=== PATIENT | female | born 1955 | race Caucasian/White ===

== ENCOUNTER → 2016-11-07 | Outpatient (CLI) | payer OTHER ==
[~2016-11-07] MED LIST: ALBUAER19 INH; AMIT100T2 PO; CHOL100027 PO; CLON2TAB3 PO; TRAZ300T PO
--- NOTE | 2016-11-07 13:48 | DIAGNOSTIC IMAGING REPORT ---
LEFT LOWER EXTREMITY VENOUS DOPPLER HISTORY: M79.89 Left leg swelling COMPARISON STUDY: None. FINDINGS: There is normal compressibility, flow, and augmentation within the left lower extremity deep venous system. Within the proximal pretibial soft tissues there is a slightly complex 4.5 x 3.1 x 1.5 cm fluid collection. This contains a thick wall and a few septations. This is located within the subcutaneous fat and favors a hematoma. IMPRESSION: No DVT within the left lower extremity. A 4.5 x 3.1 x 1.5 cm slightly complex fluid collection within the proximal pretibial soft tissues. This favors a hematoma. Electronically signed by: Tod Solis M.D. 11/07/2016 1:45 PM Dictated Date/Time: 11/07/2016 1:44 PM
--- NOTE | 2016-11-07 15:37 | DIAGNOSTIC IMAGING REPORT ---
CT LUNG SCREENING, LOW DOSE WITH COMPUTER-AIDED DETECTION (CAD) CLINICAL HISTORY: SCREENING/SMOKER, LT LEG PAIN, SWELLING COMPARISON STUDY: Chest x-ray 05/18/2012. CT DOSE: 87.60 mGy.cm TECHNIQUE: Low-dose helical CT was acquired without intravenous contrast from lung apices to bases and reconstructed at 2.5 mm every 2 mm. CAD was utilized for this study. FINDINGS: The central airways are patent. Severe emphysema. Punctate calcified granuloma within the left lung apex. There are 2 adjacent nodules within the right lower lobe as described below. No mediastinal or hilar lymphadenopathy. No significant calcified plaque within the coronary arteries. The ascending thoracic aorta measures up to 4 cm in diameter. The heart is normal in size. No pleural or pericardial effusions. Visualized unenhanced liver, spleen, and adrenal glands are unremarkable. Old, healed left posterior rib fracture. Nodule 1 Category: 3 Nodule 1 Status: Baseline Nodule 1 Description: Solid Nodule 1 Lesion ID: 1 Nodule 1 Slice Number: 67 Nodule 1 Volume (mm3): 226 Nodule 1 Major Whitney mm: 9.4 Nodule 1 Minor Whitney mm: 7.6 Nodule 2 Category: 2 Nodule 2 Status: Baseline Nodule 2 Description: Solid Nodule 2 Lesion ID: 2 Nodule 2 Slice Number: 69 Nodule 2 Volume (mm3): 14 Nodule 2 Major Whitney mm: 2.8 Nodule 2 Minor Whitney mm: 2.8 IMPRESSION: There are 2 adjacent subcentimeter nodules within the right lower lobe with recommendations listed below. Severe emphysema. The ascending thoracic aorta measures up to 4 cm in diameter. CAD FINDINGS: Overall Lung RADS Category: 3 Lung RADS Management Recommendation: Continue screening in 6 months. Lung RADS Follow Up Date: 2017-05-09 Lung RADS Nodule ID: 1 Electronically signed by: Tod Solis M.D. 11/07/2016 3:35 PM Dictated Date/Time: 11/07/2016 2:21 PM
== END | disposition home or self-care (01) ==
LOC: C.CTS 12:36
PROVIDERS: ATTEND Physician Assistant Medical
DX: M79.89 Other specified soft tissue disorders (principal); J44.9 Chronic obstructive pulmonary disease, unspecified; Z87.891 Personal history of nicotine dependence

== ENCOUNTER → 2017-07-02 | Outpatient (CLI) | payer OTHER ==
--- NOTE | 2017-07-02 11:12 | DIAGNOSTIC IMAGING REPORT ---
PET/CT SKULL-THIGH CLINICAL HISTORY: 61 years-old Female presenting with SINGLE PULMONARY NODULE, two right lower lung nodules one in the right lower lung increased in size from prior exam. TECHNIQUE: PET/CT was performed from the base of the skull through the proximal thighs following the intravenous administration of 14.575 mCi of F18-FDG. Blood glucose level 102 mg/dL. The injection was performed at 8:53 AM and imaging began at 9:[address] was performed for attenuation correction purposes and anatomic localization. COMPARISON: Chest CT from 06/10/2017. CT DOSE (mGy.cm): The estimated cumulative dose is 1156.30. FINDINGS: Head and neck: No FDG-avid disease or significant lymphadenopathy in the imaged portions of the head and the neck. Chest: No FDG-avid disease in the chest. Normal thyroid and thoracic inlet. No axillary, supraclavicular, hilar, or mediastinal lymphadenopathy. Atherosclerosis of the aorta. Normal heart size. No pericardial or pleural effusion. Severe emphysema. Redemonstration of 2 adjacent solid pulmonary nodules in the periphery of the right lower lobe. The larger nodule is at the lower limit of PET resolution. Allowing for this, the nodule has a max SUV of 0.86 in comparison to surrounding lung parenchyma with a max SUV of 0.50. This is not significantly FDG avid. The second smaller nodule is below the level of PET resolution. Dependent groundglass opacity most prominently in the left lower lobe with mild FDG avidity (max SUV 2.42). Mild bronchial wall thickening. Airways otherwise patent. Abdomen and pelvis: Below the diaphragm, tracer is distributed physiologically in the gastrointestinal and genitourinary tracts. There is no significant lymphadenopathy and no FDG-avid disease. Atherosclerosis of the normal caliber abdominal aorta. Postsurgical changes of the midline abdominal wall likely with mesh repair of a ventral incisional hernia. Musculoskeletal: Orthopedic hardware noted in the left humerus. Bilateral mild FDG avidity over the greater trochanters of the femurs suggest trochanteric bursitis. No FDG avid or destructive osseous lesion. Degenerative changes of the spine. Evidence of old left rib fractures. IMPRESSION: 1. No significant FDG avidity of the larger right lower lobe nodule. The smaller right lower lobe nodules below the level of PET resolution. Follow-up of these nodules by chest CT recommended per [employer] Society 2017 recommendations below. The lack of FDG avidity favors a benign etiology. 2. Severe emphysema. 3. Dependent mildly FDG avid groundglass opacity in the left lower lobe. This may represent atelectasis versus aspiration/aspiration pneumonitis. 4. Bilateral trochanteric bursitis. Please refer to below summary of Fleischner Society 2017 recommendations for follow-up of incidental CT nodules (Dolly Galindo et al. Guidelines for management of incidental pulmonary nodules detected on CT images: From the Fleischner Society 2017. Radiology 2017; 284: 228-243.) SOLID NODULES Single nodule; size < 6 mm * Low risk patients: No routine follow-up * High risk patients: Optional CT at 12 months Single nodule; size 6-8 mm * Low risk patients: CT at 6-12 months, then consider CT at 18-24 months * High risk patients: CT at 6-12 months, then at 18-24 months Single nodule; size > 8 mm * Either low or high risk patients: Considered CT at 3 months, PET/CT, or tissue sampling Multiple nodules; size < 6 mm * Low risk patients: No routine follow up * High risk patients: Optional CT at 12 months Multiple nodules; size 6-8 mm * Low risk patients: CT at 3-6 months, then consider CT at 18-24 months * High risk patients: CT at 3-6 months, then at 18-24 months Multiple nodules; size > 8 mm * Low risk patients: CT at 3-6 months, then consider at 18-24 months * High risk patients: CT at 3-6 months, then at 18-24 months Note: These guidelines apply to incidental nodules. These guidelines do not apply to patients younger than 35 years, immunocompromised patients, or patients with cancer. * Low risk patients: Minimal or absent history of smoking and/or other known risk factors * High risk patients: History of smoking, exposure to other carcinogens, emphysema, fibrosis, upper lobe location, family history of lung cancer, etc. * If a nodule up to 8 mm is partly solid or is ground glass, further follow-up is required after 24 months to exclude possible slow growing adenocarcinoma. SUBSOLID NODULES Single ground-glass nodule * Nodule size < 6 mm: No routine follow-up * Nodule size > or = 6 mm: CT at 6-12 months to confirm persistence, then CT every 2 years until 5 years Single part-solid nodule * Nodule size < 6 mm: No routine follow-up * Nodules size > or = 6 mm: CT at 3-6 months to confirm persistence. If unchanged and solid component remains < 6 mm, annual CT should be performed for 5 years Multiple nodules * Nodule size < 6 mm: CT at 3-6 months. If stable, consider CT at 2 and 4 years. * Nodules size > or = 6 mm: CT at 3-6 months. Subsequent management based on the most suspicious nodule(s) Electronically signed by: Cosmo Noble M.D. 07/02/2017 11:10 AM Dictated Date/Time: 07/02/2017 10:57 AM
== END | disposition home or self-care (01) ==
LOC: C.PET 08:34
PROVIDERS: ATTEND Internal Medicine
DX: R91.1 Solitary pulmonary nodule (principal); J43.9 Emphysema, unspecified; M70.61 Trochanteric bursitis, right hip; M70.62 Trochanteric bursitis, left hip

== ENCOUNTER → 2017-12-09 | Outpatient (CLI) | payer OTHER ==
--- NOTE | 2017-12-09 15:14 | DIAGNOSTIC IMAGING REPORT ---
(CHEST) THORAX WITHOUT CT DOSE: 166.52 mGycm CLINICAL HISTORY: 62 years-old Female with R91.8 Pulmonary nodules. Follow-up study in a patient with pulmonary nodules TECHNIQUE: Multiaxial CT images of the chest were performed without contrast. A dose lowering technique was utilized adhering to the principles of ALARA. COMPARISON: PET CT 06/22/2017, chest CT 06/10/2017 FINDINGS: No dominant thyroid nodule or pathologic adenopathy identified. The heart is normal in size without pericardial effusion. Atherosclerosis of the thoracic aorta. There is mild fusiform dilation of the ascending thoracic aorta, 4.0 x 3.9 cm in AP and transverse dimension. The imaged main pulmonary artery is unremarkable. Advanced emphysema without pneumothorax or pleural effusion. There are mild dependent groundglass subsegmental opacities suggesting atelectasis. 8 mm solid nodule of the right lower lobe on image 167 series 4 appears unchanged from comparison and demonstrates circumscribed margins. Air is noted adjacent 4 mm nodule on image 163 series 4 which also appears unchanged. No new or enlarging pulmonary nodules identified. There is mild bilateral bronchial wall thickening suggesting chronic bronchitis. No acute process of the imaged upper abdomen. Soft tissues are within normal limits. Bones appear mildly demineralized and intact. Postoperative changes about the left humeral head, partially imaged. IMPRESSION: 1. Unchanged size and appearance of the two solid pulmonary nodules of the right lower lobe measuring up to 8 mm . No new or enlarging pulmonary nodules are identified. 2. Severe emphysema with suggested bronchitis. 3. Mild fusiform dilation of the ascending thoracic aorta, 4.0 x 3.9 cm. Please refer to below summary of Fleischner criteria recommendations for follow-up of incidental CT nodules (Dolly Galindo, Guidelines for management of small pulmonary nodules detected on CT scans: A statement from the Fleischner Society, Radiology 237: [phone].) SOLID NODULES Multiple nodules size: 6-8 mm * Low risk patients: follow-up at 3-6 months, then consider further follow-up at 18-24 months * high risk patients: follow-up at 3-6 months, then at 18-24 months if no change Multiple nodules size: >8 mm * Low risk patients: follow-up at 3-6 months, then consider further follow-up at 18-24 months * high risk patients: follow-up at 3-6 months, then at 18-24 months if no change Note: newly detected indeterminate nodule in persons 35 years of age or older. * Low risk patients: minimal or absent history of smoking and/or other known risk factors * high risk patients: history of smoking or of other known risk factors (e.g. first degree relative with lung cancer, or exposure to asbestos, radon, uranium) * if a nodule up to 8 mm is partly solid or is ground glass further follow-up is required after 24 months to exclude possible slow growing adenocarcinoma (MARA) The above report was generated using voice recognition software. It may contain grammatical, syntax or spelling errors. Electronically signed by: Attila Limon M.D. 12/09/2017 3:13 PM Dictated Date/Time: 12/09/2017 3:05 PM
== END | disposition home or self-care (01) ==
LOC: C.CTS 14:11
PROVIDERS: ATTEND Internal Medicine
DX: R91.8 Other nonspecific abnormal finding of lung field (principal)

== ENCOUNTER 2024-02-06 16:15 | Inpatient (IN) ==
[2024-02-06 18:29] LABS: Basophils # (auto) 0.03 K/uL (0.00-0.20); Basophils % (auto) 0.6 %; Eosinophils # (auto) 0.04 K/uL (0.00-0.50); Eosinophils % (auto) 0.8 %; Hemoglobin 14.7 g/dl (12.0-16.0); Immature Granulocytes # (auto) 0.01 K/uL (0.01-0.20); Immature Granulocytes % (auto) 0.2 %; Lymphocytes # (auto) 1.05 K/uL (1.20-3.40); Mean Corpuscular Hemoglobin 30.8 pg (25.0-34.0); Mean Corpuscular Hgb Conc 32.7 g/dL (32.0-36.0); Mean Corpuscular Volume 94.3 fL (80.0-100.0); Mean Platelet Volume 10.3 fL (9.4-12.4); Monocytes # (auto) 0.45 K/uL (0.11-0.59); Monocytes % (auto) 8.6 %; Neutrophils # (auto) 3.66 K/uL (1.40-6.50); Neutrophils % (auto) 69.8 %; Platelet Count 255 K/uL (130-400); RDW Coefficient of Variation 12.3 % (11.5-14.5); RDW Standard Deviation 42.6 fL (36.4-46.3); Red Blood Count 4.77 M/uL (4.20-5.40); White Blood Count 5.24 K/ul (4.8-10.8)
[2024-02-06] MEDS: SODIUM CHLORIDE 0.9% 1,000 ML IV STA (18:30)
[2024-02-06] MEDS: ACETAMINOPHEN 1,000 MG/100 ML VIAL IV STA (18:30)
[2024-02-06] MEDS: fentaNYL citrate PF 100 MCG/2 ML VIAL IV ONE (18:30)
[2024-02-06 18:36] LABS: Albumin Globulin Ratio 1.2 (0.9-2); BUN Creatinine Ratio 19.1 (10-20); Bilirubin,Total 0.6 mg/dl (0.2-1.0); Calcium 9.5 mg/dl (8.6-10.3); Creatinine Clr Calc Pharmacy 65.6 ml/min; Est GFR (African American) 102.7 ml/min; Est GFR (Non-African American) 88.6 ml/min; Globulin 3.3 gm/dl (2.5-4.0); Potassium 3.9 mmol/L (3.5-5.1); Total Protein 7.3 gm/dl (6.0-8.3)
[2024-02-06] MEDS: fentaNYL citrate PF 100 MCG/2 ML VIAL IV STA (20:23)
--- NOTE | 2024-02-06 21:52 | Magnetic Resonance Report ---
Exam(s): MRI L SPINE Without Contrast EXAM: MR Lumbar Spine Without Intravenous Contrast CLINICAL HISTORY: Reason for exam: lumbar compression fx, L leg weakness. TECHNIQUE: Magnetic resonance images of the lumbar spine without intravenous contrast in multiple planes. COMPARISON: None. FINDINGS: Vertebrae: Severe biconcave T12 compression deformity with retropulsion. Mild underlying edema is nonspecific, could reflect subacute fracture with ongoing healing. Avascular necrosis is also a consideration. No other compression deformity or marrow edema. No discitis or osteomyelitis. Conus: Terminates normally, no abnormal signal. Normal rootlets of the cauda equina, with possible mild, chronic arachnoiditis of the distal thecal sac. Soft tissues: No epidural hematoma or paraspinous mass. DISCS/SPINAL CANAL/NEURAL FORAMINA: T12-L1: T12 retropulsion with narrowing of the spinal canal, though CSF persists dorsal to the conus and there is no spinal stenosis. L1-L2: Unremarkable for age. L2-L3: Moderate degenerative disc disease. L3-L4: Moderate degenerative disc disease. L4-L5: Moderate degenerative disc disease. L5-S1: Unremarkable for age. OTHER: No isolated disc herniation. Moderate to severe facet hypertrophy. No significant central spinal stenosis. IMPRESSION: 1. Severe T12 compression deformity with mild edema, possible subacute fracture with ongoing healing. Avascular necrosis felt less likely, not excluded. 2. Possible, mild chronic arachnoiditis of the distal thecal sac. 3. Moderate degenerative disc disease, without disc herniation or central spinal stenosis. 4. No disc herniation, central spinal stenosis, marrow edema, acute fracture, discitis/osteomyelitis or abnormal signal in the conus. Electronically signed by: Alfreda Oh M.D. 02/06/24 21:51 PM
[2024-02-06] MEDS: MoRPHine SULFATE 2 MG/ML CARP IV PRN (23:10)
--- NOTE | 2024-02-07 01:04 | Emergency Department Note ---
Impression & Plan Closed T12 fracture, Intractable pain, Unable to care for self ED Provider Note CHIEF COMPLAINT: Low back pain, left leg weakness HISTORY OF PRESENT ILLNESS: This 68-year-old female patient with past medical history of COPD, anxiety/depression, GERD, polyneuropathy, pulmonary nodules and osteoporosis presents to the emergency department with complaints of low back pain. Patient states she fell getting out of bed in mid January after her leg got caught on her bedspread. Patient states she fell with her hip into her radiator. She has a known T12 compression fracture that was diagnosed at an outside hospital while on vacation several weeks ago. She has been taking gabapentin and oxy without significant relief of her discomfort. Patient states she has been living on her couch and attempting to use a bucket next to the couch as a toilet. She has limited assistance at home, but has been asking friends and family to come in to help her. Patient was referred into the emergency department by her PCPs office for further evaluation and management. Patient denies any recent falls since the initial fall several weeks ago. REVIEW OF SYSTEMS: A review of systems was performed with positives and pertinent negatives listed in the history of present illness. 10 systems were reviewed and are otherwise negative. ALLERGIES: see below MEDICATIONS: see below PMH: see below SOCIAL HISTORY: see below DDx: Lumbar disc herniation, muscular strain, cauda equina, UTI, kidney stone among others. PHYSICAL EXAM: Vital signs reviewed. General: Chronically ill-appearing 68-year-old female, thin and frail. HEENT: No scleral icterus, PERRLA, neck supple. Moist mucous membranes Cardiovascular: Regular rate and rhythm, no extra sounds. Pulmonary: Clear to auscultation bilaterally, normal work of breathing. Abdomen: Soft, nontender, nondistended, positive bowel sounds. Musculoskeletal: Nontender to palpation of the cervical and thoracic spine, the proximal lumbar spine is uncomfortable to palpation, unable to raise the left leg, deep tendon reflex in the left knee is difficult to obtain as patient has had a knee replacement. She does have full dorsiflexion and plantarflexion of the left foot. Neurologic: Patient awake alert and oriented x 3, speech is clear Skin: Warm, dry, no rash EMERGENCY DEPARTMENT COURSE/MDM: Patient was evaluated and appeared to be some discomfort. IV access was obtained and laboratory work was drawn. Patient was placed on the sheet rock applier and noted to be in normal sinus rhythm. Given the patient's recent history and diagnosed T12 compression fracture and no access to her previous imaging, MRI of the lumbar spine was performed due to the weakness in the left leg. Patient was medicated with IV acetaminophen, IV fentanyl and hydrated with normal saline solution. Patient's laboratory work is reassuring. UA has been ordered but has not yet been collected. Patient did require several doses of IV analgesics due to her discomfort. Time she is not safe for discharge home she is not able to ambulate. Patient's case was discussed with the hospitalist service to evaluate the patient for admission and further management. Consult with Dr. Morton was attempted but unsuccessful, will defer to inpatient team. Patient is aware of the plan and agreed. MONITORING: An order for cardiac monitoring was placed and the patient is noted to be in a normal sinus rhythm at 63 beats per minute. RADIOLOGY: IMPRESSION: 1. Severe T12 compression deformity with mild edema, possible subacute fracture with ongoing healing. Avascular necrosis felt less likely, not excluded. 2. Possible, mild chronic arachnoiditis of the distal thecal sac. 3. Moderate degenerative disc disease, without disc herniation or central spinal stenosis. 4. No disc herniation, central spinal stenosis, marrow edema, acute fracture, discitis/osteomyelitis or abnormal signal in the conus. DISPOSITION: Admit Past Med/Surg History Problem List (Updated 02/08/24 @ 01:26 by Gina Martínez MD) Unable to care for self (Acute) Intractable pain (Acute) Closed T12 fracture (Acute) UTI (urinary tract infection) Fracture of femoral neck, left Compression fracture of body of thoracic vertebra (01/19/24) patient had a traumatic fall and sustained compression fractures in T12, L3 and L4-per the [facility] ED report dated 01/19/24 Vitamin B12 deficiency (Chronic) Osteoporosis (Chronic) alendronate started 01/2023 Idiopathic polyneuropathy (Chronic) Pulmonary nodules (Chronic) Insomnia (Chronic) Gastroesophageal reflux disease (Chronic) Depression with anxiety (Chronic) Chronic obstructive pulmonary disease (Chronic) Medical History History of renal artery stenosis s/p right renal artery bypass 1999 Surgical History History of umbilical hernia repair History of hemorrhoidectomy History of arthroscopy of right shoulder History of total knee arthroplasty Family History Mother Pulmonary embolism Father Intracranial hemorrhage Denies family history of Ovarian cancer Prostate cancer Myocardial infarction Breast cancer Colorectal cancer Social History Smoking Status: Current every day smoker Tobacco Type: Cigarettes Age Started Using Tobacco: 16; packs per day: 0.5; Cigarettes Per Day: 2; Second Hand Exposure: No; Do You Dip or Chew Tobacco: No; Hx Alcohol Use: No Hx Substance Use: No Preferred Language: Pashto Communication Ability: Effective Hearing Ability: Normal 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 Product Required: No Beliefs That Will Affect Care: None marital status: Current Living Situation: Alone current occupational status: employed current occupation: [employer] Other Information That Helps Us Care for You: No Feels Safe at Home: Yes Safety Concerns: Feels Safe At This Time Dental Care, Regularly: No Physical Activity Frequency: Does not Exercise Seatbelt Use: always Sunscreen Use: No Assistive Devices: Cane, Denture - Upper and Denture - Lower Allergies Allergies Allergy/AdvReac Type Severity Reaction Status Date / Time NSAIDS (Non-Steroidal Allergy Unknown NOT TO Verified 02/06/24 20:46 Anti-Inflamma TAKE PER MD DUE TO RENAL ARTERY BYPASS Home Meds Home Medications Medication Instructions Recorded Confirmed B6 1.7 mg-folic 400 mcg-B12 2.4 1 cap PO .FRSASU 08/20/22 02/06/24 yaz-vnzlzb-ufldndwhrnrb oral capsule (Neuriva Plus Brain Performance) biotin 10,000 mcg capsule 0 mcg PO DAILY 08/20/22 02/06/24 vit C 250 mg-vit E 90 mg-zinc 40 1 tab PO DAILY 08/20/22 02/06/24 mg-copper 1 nb-saqife-rulenl capsule (PreserVision AREDS-2) mecobalamin (vitamin B12) 1,000 1,000 mcg PO .FRSASU 01/12/23 02/06/24 mcg chewable tablet multivitamin 1 tab PO QAM 02/06/24 02/06/24 Previous Rx's Medication Instructions Recorded gabapentin 100 mg capsule 200 mg (2 x 100 mg) PO HS #180 caps 07/01/23 umeclidinium 62.5 mcg-vilanterol 1 inh inhalation Q24H #180 ea 07/07/23 25 mcg/actuation powdr for inhalation (Anoro Ellipta) clonazepam 1 mg tablet (Klonopin) 1 mg PO QID #120 tabs 10/28/23 alendronate 70 mg tablet 70 mg PO .COMPLEX #12 tabs 12/12/23 albuterol sulfate 90 mcg/actuation 2 puff inhalation Q4H PRN 12/24/23 aerosol inhaler (Ventolin HFA) shortness of breath or wheezing #18 grams efinaconazole 10 % topical 1 applic topical DAILY 48 weeks #4 12/24/23 solution with applicator mL mirtazapine 45 mg tablet 45 mg PO QPM #90 tabs 12/24/23 omeprazole 20 mg capsule,delayed 20 mg PO DAILY #90 caps 12/24/23 release trazodone 100 mg tablet 200 mg (2 x 100 mg) PO HS #180 tabs 12/24/23 triamcinolone acetonide 0.1 % 1 applic topical BID #30 grams 12/24/23 topical ointment calcitonin (salmon) 200 1 spray intranasal (ALT) DAILY 30 01/27/24 unit/actuation nasal spray days #3.7 mL oxycodone-acetaminophen 5 mg-325 1 tab PO Q6H PRN pain 7 days #28 02/04/24 mg tablet tabs Results & Data (ED) Vital Signs Vital Signs - 24 hr 02/06/24 16:16 02/06/24 16:16 02/06/24 16:59 Temperature 36.6 C Temperature Source Temporal Artery Scan Pulse Rate 79 67 Pulse Rate [Apical] Pulse Rhythm [Apical] Pulse Strength [Apical] Respiratory Rate 18 Respiratory Effort / Characteristics Respiratory Depth Respiratory Pattern Blood Pressure 136/82 Blood Pressure [Right Arm] Blood Pressure Mean 100 Blood Pressure Mean [Right Arm] Blood Pressure Position [Right Arm] Pulse Oximetry 93 93 Oxygen Delivery Method Sepsis Recent Fever Within 48 Hours No Sepsis New/Unexplained Change in Mental Status N/A Sepsis Action Taken by Nursing No Action Required 02/06/24 17:32 02/06/24 18:32 02/06/24 20:30 Temperature Temperature Source Pulse Rate Pulse Rate [Apical] 64 67 Pulse Rhythm [Apical] Regular Pulse Strength [Apical] Respiratory Rate 19 19 16 Respiratory Effort / Characteristics Non-Labored Spontaneous Non-Labored Spontaneous Respiratory Depth Normal Normal Respiratory Pattern Regular Blood Pressure Blood Pressure [Right Arm] 128/72 108/58 L 126/63 Blood Pressure Mean Blood Pressure Mean [Right Arm] 90 74 84 Blood Pressure Position [Right Arm] Pulse Oximetry 93 95 90 Oxygen Delivery Method Room Air Room Air Room Air Sepsis Recent Fever Within 48 Hours Sepsis New/Unexplained Change in Mental Status Sepsis Action Taken by Nursing 02/06/24 22:00 02/06/24 23:36 02/07/24 00:00 Temperature Temperature Source Pulse Rate 62 Pulse Rate [Apical] 71 63 Pulse Rhythm [Apical] Regular Pulse Strength [Apical] Normal Respiratory Rate 18 18 Respiratory Effort / Characteristics Non-Labored Spontaneous Respiratory Depth Normal Normal Respiratory Pattern Regular Blood Pressure Blood Pressure [Right Arm] 110/78 117/91 Blood Pressure Mean Blood Pressure Mean [Right Arm] 88 99 Blood Pressure Position [Right Arm] Lying Pulse Oximetry 94 93 Oxygen Delivery Method Room Air Room Air Sepsis Recent Fever Within 48 Hours Sepsis New/Unexplained Change in Mental Status Sepsis Action Taken by Half-Way Medications Current Medication List: was personally reviewed by me Laboratory Data Attestation: I reviewed the patient's lab results. 02/07/24 09:08 02/07/24 09:08 Lab Results 02/06/24 Range/Units 16:35 WBC 5.24 (4.8-10.8) K/ul RBC 4.77 (4.20-5.40) M/uL Hgb 14.7 (12.0-16.0) g/dl Hct 45.0 (37.0-47.0) % MCV 94.3 (80.0-100.0) fL MCH 30.8 (25.0-34.0) pg MCHC 32.7 (32.0-36.0) g/dL RDW Std Deviation 42.6 (36.4-46.3) fL RDW Coeff of Josie 12.3 (11.5-14.5) % Plt Count 255 (130-400) K/uL MPV 10.3 (9.4-12.4) fL Immature Gran % (Auto) 0.2 % Neut % (Auto) 69.8 % Lymph % (Auto) 20.0 % [place] % (Auto) 8.6 % Eos % (Auto) 0.8 % Baso % (Auto) 0.6 % Neut # (Auto) 3.66 (1.40-6.50) K/uL Lymph # (Auto) 1.05 L (1.20-3.40) K/uL [place] # (Auto) 0.45 (0.11-0.59) K/uL Eos # (Auto) 0.04 (0.00-0.50) K/uL Baso # (Auto) 0.03 (0.00-0.20) K/uL Immature Gran # (Auto) 0.01 (0.01-0.20) K/uL Sodium 135 L (136-145) mmol/L Potassium 3.9 (3.5-5.1) mmol/L Chloride 101 (98-107) mmol/L Carbon Dioxide 28 (21-32) mmol/L Anion Gap 6 (3-11) BUN 13 (6-23) mg/dl Creatinine 0.68 (0.6-1.2) mg/dl Est Cr Clr Drug Dosing 65.6 ml/min Est GFR ( Amer) 102.7 ml/min Est GFR (Non-Af Amer) 88.6 ml/min BUN/Creatinine Ratio 19.1 (10-20) Glucose 111 H (70-99(Fasting)) mg/dl Calcium 9.5 (8.6-10.3) mg/dl Total Bilirubin 0.6 (0.2-1.0) mg/dl AST 19 (13-39) U/L ALT 10 (7-52) U/L Alkaline Phosphatase 96 (34-104) U/L Total Protein 7.3 (6.0-8.3) gm/dl Albumin 4.0 (3.4-5.0) gm/dl Globulin 3.3 (2.5-4.0) gm/dl Albumin/Globulin Ratio 1.2 (0.9-2) Administered Medications Acetaminophen (Acetaminophen 500 Mg Tab) 1,000 mg PO Q8H PRN PRN Reason: Pain first line Stop: 03/08/24 04:15 Last Admin: 02/07/24 08:00 Dose: 1,000 mg Documented By: LMM Clonazepam (Clonazepam 1 Mg Tab) 1 mg PO QID ALFREDO Stop: 03/08/24 08:59 Last Admin: 02/07/24 21:14 Dose: 1 mg Documented By: Admin: 02/07/24 17:06 Dose: 1 mg Documented By: Admin: 02/07/24 13:14 Dose: 1 mg Documented By: Admin: 02/07/24 08:21 Dose: 1 mg Documented By: KYLIE Cyanocobalamin (Cyanocobalamin (B-12) 500 Mcg Tablet) 1,000 mcg PO SuFrSa@0900 ALFREDO Stop: 03/08/24 08:59 Last Admin: 02/07/24 08:22 Dose: 1,000 mcg Documented By: KYLIE Gabapentin (Gabapentin 100 Mg Cap) 200 mg PO HS ALFREDO Stop: 03/08/24 20:59 Last Admin: 02/07/24 21:14 Dose: 200 mg Documented By: MIRIAN Dexamethasone 4 mg/ Syringe 1 mls @ 1 mls/min IV Q8H ALFREDO Stop: 03/08/24 08:59 Last Admin: 02/08/24 01:03 Dose: 1 mls/min Documented By: Admin: 02/07/24 17:07 Dose: 1 mls/min Documented By: Admin: 02/07/24 09:06 Dose: 1 mls/min Documented By: KYLIE Ceftriaxone Sodium (Rocephin) 1,000 mg in 50 mls @ 100 mls/hr IV Q24H ALFREDO Stop: 02/12/24 18:59 Last Infusion: 02/07/24 21:20 Dose: Infused Documented By: Admin: 02/07/24 20:37 Dose: 100 mls/hr Documented By: MIRIAN Lidocaine (Lidocaine 5% 1 Patch) 1 patch TD QAM ALFREDO Stop: 03/08/24 18:59 Last Admin: 02/07/24 20:37 Dose: 1 patch Documented By: MIRIAN Mirtazapine (Mirtazapine Soltab 15 Mg) 45 mg PO QPM ALFREDO Stop: 03/08/24 20:59 Last Admin: 02/07/24 21:14 Dose: 45 mg Documented By: MIRIAN Miscellaneous (Efinaconazole 10% Soln: Order Awaiting Action) 1 each N/A QS ALFREDO Stop: 03/08/24 07:59 Last Admin: 02/08/24 01:05 Dose: Not Given Documented By: Admin: 02/07/24 15:02 Dose: Not Given Documented By: Admin: 02/07/24 08:02 Dose: Not Given Documented By: KYLIE Miscellaneous (Remove Lidoderm Patch) 1 each N/A DAILY@2100 [facility] Stop: 03/08/24 22:59 Last Admin: 02/08/24 01:05 Dose: 1 each Documented By: MIRIAN Morphine Sulfate (Morphine Sulfate 2 Mg/Ml Carp) 2 mg IV Q4H PRN PRN Reason: Pain 4-6 Stop: 02/21/24 02:22 Last Admin: 02/07/24 10:50 Dose: 2 mg Documented By: Admin: 02/07/24 06:11 Dose: 2 mg Documented By: MIRIAN Morphine Sulfate (Morphine Sulfate 4 Mg/Ml 1 Ml Carp\Vial) 4 mg IV Q4H PRN PRN Reason: Pain 7-10 Stop: 02/21/24 02:22 Last Admin: 02/08/24 01:03 Dose: 4 mg Documented By: Admin: 02/07/24 19:18 Dose: 4 mg Documented By: Admin: 02/07/24 13:35 Dose: 4 mg Documented By: Admin: 02/07/24 08:00 Dose: 4 mg Documented By: Admin: 02/07/24 02:31 Dose: 4 mg Documented By: MIRIAN Multivitamins (Multivitamin Tab) 1 tab PO [facility] Stop: 03/08/24 08:59 Last Admin: 02/07/24 08:22 Dose: 1 tab Documented By: KYLIE Pantoprazole Sodium (Pantoprazole 40 Mg Tab) 40 mg PO DAILY [facility] Stop: 03/08/24 08:59 Last Admin: 02/07/24 08:22 Dose: 40 mg Documented By: KYLIE Trazodone HCl (Trazodone Hcl 100 Mg Tab) 200 mg PO HS [facility] Stop: 03/08/24 20:59 Last Admin: 02/07/24 21:14 Dose: 200 mg Documented By: MIRIAN Triamcinolone Acetonide (Triamcinolone Acet 0.1% Oint 15 Gm Tube) 1 appln TOP BID [facility] Stop: 03/08/24 08:59 Last Admin: 02/07/24 21:21 Dose: Not Given Documented By: Admin: 02/07/24 08:21 Dose: 1 appln Documented By: KYLIE Umeclidinium/Vilanterol (Umeclidinium/Vilanterol 62.5/25mcg 7 Puffs/Inhaler) 1 puffs INH DAILY ALFREDO Stop: 03/08/24 08:59 Last Admin: 02/07/24 08:22 Dose: 1 puffs Documented By: LMDomenica Discontinued Medications Fentanyl Citrate (Fentanyl Citrate Pf 100 Mcg/2 Ml Vial) 25 mcg IV NOW ONE Stop: 02/06/24 18:18 Last Admin: 02/06/24 18:30 Dose: 25 mcg Documented By: FÁTIMA Fentanyl Citrate (Fentanyl Citrate Pf 100 Mcg/2 Ml Vial) 50 mcg IV NOW STA Stop: 02/06/24 20:20 Last Admin: 02/06/24 20:23 Dose: 50 mcg Documented By: MILAGROS Acetaminophen (Ofirmev) 1,000 mg in 100 mls @ 400 mls/hr IV NOW STA Stop: 02/06/24 18:31 Last Infusion: 02/06/24 19:52 Dose: Infused Documented By: Admin: 02/06/24 18:30 Dose: 400 mls/hr Documented By: FÁTIMA Sodium Chloride (Nss) 1,000 mls @ 100 mls/hr IV .Q10H STA Stop: 02/07/24 04:17 Last Infusion: 02/07/24 02:32 Dose: Infused Documented By: Admin: 02/06/24 18:30 Dose: 100 mls/hr Documented By: FÁTIMA Dexamethasone 6 mg/ Syringe 1.5 mls @ 1 mls/min IV ONE ONE Stop: 02/07/24 02:31 Last Admin: 02/07/24 02:35 Dose: 1 mls/min Documented By: MIRIAN Sodium Chloride (Nss) 500 mls @ 80 mls/hr IV .Q6H15M ALFREDO Stop: 02/07/24 08:59 Last Infusion: 02/07/24 09:12 Dose: Infused Documented By: Admin: 02/07/24 02:51 Dose: 80 mls/hr Documented By: MIRIAN Morphine Sulfate (Morphine Sulfate 2 Mg/Ml Carp) 2 mg IV Q2H PRN PRN Reason: Pain Stop: 02/20/24 23:02 Last Admin: 02/06/24 23:10 Dose: 2 mg Documented By: MILAGROS Morphine Sulfate (Morphine Sulfate 2 Mg/Ml Carp) 2 mg IV NOW STA Stop: 02/07/24 06:00 Last Admin: 02/07/24 06:15 Dose: Not Given Documented By: LBN Imaging Data Radiologist's Impression: Lumbar Spine MRI 02/06/24 18:17 Exam(s): MRI L SPINE Without Contrast EXAM: MR Lumbar Spine Without Intravenous Contrast CLINICAL HISTORY: Reason for exam: lumbar compression fx, L leg weakness. TECHNIQUE: Magnetic resonance images of the lumbar spine without intravenous contrast in multiple planes. COMPARISON: None. FINDINGS: Vertebrae: Severe biconcave T12 compression deformity with retropulsion. Mild underlying edema is nonspecific, could reflect subacute fracture with ongoing healing. Avascular necrosis is also a consideration. No other compression deformity or marrow edema. No discitis or osteomyelitis. Conus: Terminates normally, no abnormal signal. Normal rootlets of the cauda equina, with possible mild, chronic arachnoiditis of the distal thecal sac. Soft tissues: No epidural hematoma or paraspinous mass. DISCS/SPINAL CANAL/NEURAL FORAMINA: T12-L1: T12 retropulsion with narrowing of the spinal canal, though CSF persists dorsal to the conus and there is no spinal stenosis. L1-L2: Unremarkable for age. L2-L3: Moderate degenerative disc disease. L3-L4: Moderate degenerative disc disease. L4-L5: Moderate degenerative disc disease. L5-S1: Unremarkable for age. OTHER: No isolated disc herniation. Moderate to severe facet hypertrophy. No significant central spinal stenosis. IMPRESSION: 1. Severe T12 compression deformity with mild edema, possible subacute fracture with ongoing healing. Avascular necrosis felt less likely, not excluded. 2. Possible, mild chronic arachnoiditis of the distal thecal sac. 3. Moderate degenerative disc disease, without disc herniation or central spinal stenosis. 4. No disc herniation, central spinal stenosis, marrow edema, acute fracture, discitis/osteomyelitis or abnormal signal in the conus. Electronically signed by: Alfreda Oh M.D. 02/06/24 21:51 PM Discharge Plan Visit Data Chief Complaint: Back Injury/Pain Stated Complaint: FELL ON THE January,FRACTURED VERTABRA ED Provider: Gina Martínez Discharge Problem: Closed T12 fracture, Intractable pain, Unable to care for self Patient Disposition: Admitted As Inpatient Discharge Instructions Interventions: ED Discharge Assessment Last Done: 02/07/24 01:38 Discharge Problem: Closed T12 fracture Qualifiers: Encounter type: subsequent encounter Fracture morphology: unspecified fracture morphology Fracture healing: with routine healing Qualified Code(s): S22.089D - Unspecified fracture of T11-T12 vertebra, subsequent encounter for fracture with routine healing
--- NOTE | 2024-02-07 01:48 | History & Physical Report ---
Date of Service February 07, 2024 Assessment & Plan (1) Compression fracture of body of thoracic vertebra: Plan: - MRI of lumbar spine with Severe T12 compression deformity with mild edema, possible subacute fracture with ongoing healing. Avascular necrosis felt less likely, not excluded. Possible, mild chronic arachnoiditis of the distal thecal sac - strength in left LE - ortho/spine consulted; NPO pending eval - Will give 6mg Decadron and continue 4mg q8 hours - Pain regimen with Tylenol, Morphine 2mg q4h pain 4-6, 4mg pain 7-10 - Hold on PT/OT until evaluated by ortho/spine (2) Insomnia: Plan: - continue trazodone, mirtazapine (3) Gastroesophageal reflux disease: Plan: - continue pantoprazole (4) Depression with anxiety: Plan: - continue clonazepam (5) Chronic obstructive pulmonary disease: Plan: - continue home inhalers Plan Diet: NPO pending ortho/spine eval Code: Full VTE prophylaxis: SCD, defer pharmacologic pending ortho/spine eval History of Present Illness Primary Care Provider: Petrona Castañeda MD 68 year old female with a past medical history of anxiety, depression, COPD, tobacco use, osteoporosis presenting with increased back pain and left LE weakness. Had a fall on 01/17/24. Went to get out of bed and tripped over her comforter. Next day drove to [facility] with her family. Was having continued back pain and was seen in [facility] ED where she was diagnosed with a T12 compression fracture. Since then has had worsening low back pain and weakness in left leg. Denies bowel/bladder incontinence, saddle anesthesia. Lives alone in a 2 story building, bathroom in on the second floor. Daughter lives locally. Has been having trouble getting around the house/up the stairs. ED Course: MRI lumbar spine with Severe T12 compression deformity with mild edema, possible subacute fracture with ongoing healing. Avascular necrosis felt less likely, not excluded. Possible, mild chronic arachnoiditis of the distal thecal sac. Allergies Allergy/AdvReac Type Severity Reaction Status Date / Time NSAIDS (Non-Steroidal Allergy Unknown NOT TO Verified 02/06/24 20:46 Anti-Inflamma TAKE PER MD DUE TO RENAL ARTERY BYPASS Home Medications Medication Instructions Recorded Confirmed Type B6 1.7 mg-folic 400 mcg-B12 2.4 1 cap PO .[facility] 08/20/22 02/06/24 History cqj-fntzul-kwnsryohhnup oral capsule (Neuriva Plus Brain Performance) biotin 10,000 mcg capsule 0 mcg PO DAILY 08/20/22 02/06/24 History vit C 250 mg-vit E 90 mg-zinc 40 1 tab PO DAILY 08/20/22 02/06/24 History mg-copper 1 ip-kircgo-zvzxxe capsule (PreserVision AREDS-2) mecobalamin (vitamin B12) 1,000 1,000 mcg PO .[facility] 01/12/23 02/06/24 History mcg chewable tablet gabapentin 100 mg capsule 200 mg (2 x 100 mg) PO HS #180 caps 07/01/23 02/06/24 Rx umeclidinium 62.5 mcg-vilanterol 1 inh inhalation Q24H #180 ea 07/07/23 02/06/24 Rx 25 mcg/actuation powdr for inhalation (Anoro Ellipta) clonazepam 1 mg tablet (Klonopin) 1 mg PO QID #120 tabs 10/28/23 02/06/24 Rx alendronate 70 mg tablet 70 mg PO .COMPLEX #12 tabs 12/12/23 02/06/24 Rx albuterol sulfate 90 mcg/actuation 2 puff inhalation Q4H PRN 12/24/23 02/06/24 Rx aerosol inhaler (Ventolin HFA) shortness of breath or wheezing #18 grams efinaconazole 10 % topical 1 applic topical DAILY 48 weeks #4 12/24/23 02/06/24 Rx solution with applicator mL mirtazapine 45 mg tablet 45 mg PO QPM #90 tabs 12/24/23 02/06/24 Rx omeprazole 20 mg capsule,delayed 20 mg PO DAILY #90 caps 12/24/23 02/06/24 Rx release trazodone 100 mg tablet 200 mg (2 x 100 mg) PO HS #180 tabs 12/24/23 02/06/24 Rx triamcinolone acetonide 0.1 % 1 applic topical BID #30 grams 12/24/23 02/06/24 Rx topical ointment calcitonin (salmon) 200 1 spray intranasal (ALT) DAILY 30 01/27/24 02/06/24 Rx unit/actuation nasal spray days #3.7 mL oxycodone-acetaminophen 5 mg-325 1 tab PO Q6H PRN pain 7 days #28 02/04/24 02/06/24 Rx mg tablet tabs multivitamin 1 tab PO QAM 02/06/24 02/06/24 History Past Med/Surg History Problem List Compression fracture of body of thoracic vertebra (01/19/24) patient had a traumatic fall and sustained compression fractures in T12, L3 and L4-per the [facility] ED report dated 01/19/24 Vitamin B12 deficiency (Chronic) Osteoporosis (Chronic) alendronate started 01/2023 Idiopathic polyneuropathy (Chronic) Pulmonary nodules (Chronic) Insomnia (Chronic) Gastroesophageal reflux disease (Chronic) Depression with anxiety (Chronic) Chronic obstructive pulmonary disease (Chronic) Medical History History of renal artery stenosis s/p right renal artery bypass 2000 Surgical History History of umbilical hernia repair History of hemorrhoidectomy History of arthroscopy of right shoulder History of total knee arthroplasty Family History Mother Pulmonary embolism Father Intracranial hemorrhage Denies family history of Ovarian cancer Prostate cancer Myocardial infarction Breast cancer Colorectal cancer Social History Smoking Status: Current every day smoker Tobacco Type: Cigarettes Age Started Using Tobacco: 16; packs per day: 0.5; Cigarettes Per Day: 2; Second Hand Exposure: No; Do You Dip or Chew Tobacco: No; Hx Alcohol Use: No Hx Substance Use: No Preferred Language: Pashto Communication Ability: Effective Hearing Ability: Normal 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 Beliefs That Will Affect Care: None marital status: Current Living Situation: Alone current occupational status: employed current occupation: [employer] Other Information That Helps Us Care for You: No Feels Safe at Home: Yes Safety Concerns: Feels Safe At This Time Dental Care, Regularly: No Physical Activity Frequency: Does not Exercise Seatbelt Use: always Sunscreen Use: No Assistive Devices: Cane, Denture - Upper and Denture - Lower Review of Systems Review of Systems: As per above Physical Exam Physical Exam: Constitutional: well-appearing, no acute distress HEENT: NCAT, no conjunctival injection CV: regular rhythm, no murmur appreciated, extremities well-perfused, no LE edema Resp: CTABL, no wheezes/rales/rhonchi appreciated, no increased work of breathing GI: soft, nondistended, nontender MSK: strength 5/5 right LE, decreased strength left LE 3/5 Skin: warm, dry, no rash appreciated Neuro: alert, oriented, no focal neurologic deficit appreciated, sensations intact LE B/L Results & Data Results & Data Vital Signs (Past 12 Hours) Vital Signs Temp Pulse Pulse Resp BP BP Pulse Ox 02/07/24 00:00 63 18 117/91 93 02/06/24 23:36 62 02/06/24 22:00 71 18 110/78 94 02/06/24 20:30 16 126/63 90 02/06/24 18:32 67 19 108/58 L 95 02/06/24 17:32 64 19 128/72 93 02/06/24 16:59 67 02/06/24 16:16 93 02/06/24 16:16 36.6 C 79 18 136/82 93 O2 Del Method 02/07/24 00:00 Room Air 02/06/24 23:36 02/06/24 22:00 Room Air 02/06/24 20:30 Room Air 02/06/24 18:32 Room Air 02/06/24 17:32 Room Air 02/06/24 16:59 02/06/24 16:16 02/06/24 16:16 Supervising Physician Co-Signing Physician Notes Attending addendum: I have physically seen this patient, have supervised the medical residents activities, and agree with the H&P unless as otherwise noted. Assessment and Plan: Severe T12 compression deformity- Severe deformity with mild edema Question subacute fracture Possible mild chronic arachnoiditis Give dexamethasone 6 mg IV now, then 4 mg IV every 8 hours Acetaminophen 650 mg by mouth every 6 hours as needed for mild pain or fever Morphine 2 mg IV every 4 hours as needed for moderate pain Morphine 4 mg IV every 4 hours as needed for severe pain Zofran 4 mg IV every 6 hours as needed Of note, patient is to avoid NSAIDs due to history of renal artery bypass Consult orthopedic spine surgery COPD- Routine inhalers Depression/anxiety/insomnia continue trazodone, mirtazapine Resident Activity Tracking Resident Involvement: Resident Care Provided Care Provided: Adult [facility] Medicine
[2024-02-07] MEDS ORDERED: ALBUTEROL HFA 8 GM INHALER INH PRN (01:58)
[2024-02-07] MEDS: MoRPHine SULFATE 4 MG/ML 1 ML CARP\\VIAL IV PRN (02:31)
[2024-02-07] MEDS: dexAMETHasone 6 MG in SYRINGE 0 ML IV ONE (02:35)
[2024-02-07] MEDS: SODIUM CHLORIDE 0.9% 500 ML IV SCH (02:51)
[2024-02-07] MEDS ORDERED: SODIUM CHLORIDE 0.9% 500 ML IV SCH (05:00)
--- NOTE | 2024-02-07 05:11 | Billing Data ---
Date of Service February 07, 2024 Coding Level of Care Code 93808 INT INP/OBS CARE
[2024-02-07] MEDS: MoRPHine SULFATE 2 MG/ML CARP IV PRN (06:11)
[2024-02-07] MEDS: MoRPHine SULFATE 2 MG/ML CARP IV STA (06:15)
[2024-02-07 07:52] LABS: Appearance Urine Clear (Clear); Bacteria Urine Automated None Seen (None Seen); Bilirubin Urine Negative (Negative); Blood Urine Negative (Negative); Cast Urine Automated 0-2 /lpf (0-2); Color Urine Yellow; Epithelial Cell Urine Auto 0-2 /hpf (0-2); Glucose Urine UA Negative (Negative); Ketones Urine Trace (Negative); Leukocyte Esterase Urine 3+ (Negative); Nitrite Urine Negative (Negative); Protein Urine Negative (Negative); RBC Urine Automated 0-2 /hpf (0-2); Specific Gravity Urine 1.014 (1.000-1.030); Urobilinogen Urine Negative (Negative); WBC Urine Automated >50 /hpf (0-5)
[2024-02-07] MEDS: ACETAMINOPHEN 500 MG TAB PO PRN (08:00)
[2024-02-07] MEDS: TRIAMCINOLONE ACET 0.1% OINT 15 GM TUBE TOP SCH (08:21)
[2024-02-07] MEDS: clonazePAM 1 MG TAB PO SCH (08:21)
[2024-02-07] MEDS: CYANOCOBALAMIN (B-12) 500 MCG TABLET PO SCH (08:22)
[2024-02-07] MEDS: UMECLIDINIUM/VILANTEROL 62.5/25MCG 7 PUFFS/INHALER INH SCH (08:22)
[2024-02-07] MEDS: PANTOprazole 40 MG TAB PO SCH (08:22)
[2024-02-07] MEDS: MULTIVITAMIN TAB PO SCH (08:22)
[2024-02-07] MEDS: dexAMETHasone 4 MG in SYRINGE 0 ML IV SCH (09:06)
[2024-02-07 09:56] LABS: Hematocrit (blood only) 43.3 % (37.0-47.0); Hemoglobin 14.2 g/dl (12.0-16.0); Mean Corpuscular Hemoglobin 30.9 pg (25.0-34.0); Mean Corpuscular Hgb Conc 32.8 g/dL (32.0-36.0); Mean Corpuscular Volume 94.3 fL (80.0-100.0); Mean Platelet Volume 9.9 fL (9.4-12.4); Platelet Count 227 K/uL (130-400); RDW Coefficient of Variation 12.4 % (11.5-14.5); RDW Standard Deviation 42.9 fL (36.4-46.3); Red Blood Count 4.59 M/uL (4.20-5.40); White Blood Count 3.43 K/ul (4.8-10.8)
[2024-02-07 10:03] LABS: BUN Creatinine Ratio 19.6 (10-20); Calcium 8.7 mg/dl (8.6-10.3); Creatinine Clr Calc Pharmacy 79.7 ml/min; Est GFR (African American) 109.5 ml/min; Est GFR (Non-African American) 94.5 ml/min; Magnesium 1.9 mg/dl (1.7-2.4); Potassium 4.3 mmol/L (3.5-5.1)
--- NOTE | 2024-02-07 10:03 | Orthopedic Consultation ---
Date of Consultation February 07, 2024 Assessment & Plan (1) Compression fracture of body of thoracic vertebra: MRI available for review does demonstrate evidence of acute/subacute T8 12 compression fracture. There is retropulsion into the canal without cord compression. It IS almost a vertebral Rice. I would like to obtain further imaging of the pelvis and left hip. This may require further imaging of her left knee pending results. We will trial SCDs and ANA PAULA frazier as she is nonambulatory at this time. History of Present Illness Reason for Consultation: Patient complaining of back and left leg pain with weakness. Attending Physician: Ole Mendiola MD History of Present Illness This is a 68-year-old female presents with several week history of back and subsequent leg pain. Her back pain does not seem to be her major complaint at this time. She does have a known T12 compression fracture. Her symptoms seem to involve mostly the groin lateral left thigh extending down the entire leg. Any motion left lower extremity is quite painful. She denies any numbness or tingling in the left lower extremity. She denies any symptoms into the right lower extremity. Allergies Allergy/AdvReac Type Severity Reaction Status Date / Time NSAIDS (Non-Steroidal Allergy Unknown NOT TO Verified 02/06/24 20:46 Anti-Inflamma TAKE PER MD DUE TO RENAL ARTERY BYPASS Home Medications Medication Instructions Recorded Confirmed Type B6 1.7 mg-folic 400 mcg-B12 2.4 1 cap PO .[facility] 08/20/22 02/06/24 History rhx-hpswxk-kvhippovdzce oral capsule (Neuriva Plus Brain Performance) biotin 10,000 mcg capsule 0 mcg PO DAILY 08/20/22 02/06/24 History vit C 250 mg-vit E 90 mg-zinc 40 1 tab PO DAILY 08/20/22 02/06/24 History mg-copper 1 jm-admffr-nyothg capsule (PreserVision AREDS-2) mecobalamin (vitamin B12) 1,000 1,000 mcg PO .[facility] 01/12/23 02/06/24 History mcg chewable tablet gabapentin 100 mg capsule 200 mg (2 x 100 mg) PO HS #180 caps 07/01/23 02/06/24 Rx umeclidinium 62.5 mcg-vilanterol 1 inh inhalation Q24H #180 ea 07/07/23 02/06/24 Rx 25 mcg/actuation powdr for inhalation (Anoro Ellipta) clonazepam 1 mg tablet (Klonopin) 1 mg PO QID #120 tabs 10/28/23 02/06/24 Rx alendronate 70 mg tablet 70 mg PO .COMPLEX #12 tabs 12/12/23 02/06/24 Rx albuterol sulfate 90 mcg/actuation 2 puff inhalation Q4H PRN 12/24/23 02/06/24 Rx aerosol inhaler (Ventolin HFA) shortness of breath or wheezing #18 grams efinaconazole 10 % topical 1 applic topical DAILY 48 weeks #4 12/24/23 02/06/24 Rx solution with applicator mL mirtazapine 45 mg tablet 45 mg PO QPM #90 tabs 12/24/23 02/06/24 Rx omeprazole 20 mg capsule,delayed 20 mg PO DAILY #90 caps 12/24/23 02/06/24 Rx release trazodone 100 mg tablet 200 mg (2 x 100 mg) PO HS #180 tabs 12/24/23 02/06/24 Rx triamcinolone acetonide 0.1 % 1 applic topical BID #30 grams 12/24/23 02/06/24 Rx topical ointment calcitonin (salmon) 200 1 spray intranasal (ALT) DAILY 30 01/27/24 02/06/24 Rx unit/actuation nasal spray days #3.7 mL oxycodone-acetaminophen 5 mg-325 1 tab PO Q6H PRN pain 7 days #28 02/04/24 02/06/24 Rx mg tablet tabs multivitamin 1 tab PO QAM 02/06/24 02/06/24 History Patient History Medical History History of renal artery stenosis s/p right renal artery bypass 1999 Surgical History History of umbilical hernia repair History of hemorrhoidectomy History of arthroscopy of right shoulder History of total knee arthroplasty Family History Mother Pulmonary embolism Father Intracranial hemorrhage Denies family history of Ovarian cancer Prostate cancer Myocardial infarction Breast cancer Colorectal cancer Social History Smoking Status: Current every day smoker Tobacco Type: Cigarettes Age Started Using Tobacco: 16; packs per day: 0.5; Cigarettes Per Day: 2; Second Hand Exposure: No; Do You Dip or Chew Tobacco: No; Hx Alcohol Use: No Hx Substance Use: No Preferred Language: Armenian Communication Ability: Effective Hearing Ability: Normal 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 She appears to have no discomfort to examination of her thoracolumbar spine. She does however demonstrate severe pain with any range of motion of the left lower extremity. She exhibits breakaway weakness to left plantarflexion dorsiflexion. She has marked limitation with hip flexion. She has markedly positive logroll on the left. The right has +5-5 strength and negative logroll sensory intact. Results & Data Vital Signs (Past 12 Hours) Vital Signs Temp Pulse Pulse Pulse Resp BP Pulse Ox 02/07/24 07:00 36.7 C 74 14 118/72 91 02/07/24 02:14 36.7 C 65 17 137/76 94 02/07/24 00:00 63 18 117/91 93 02/06/24 23:36 62 O2 Del Method 02/07/24 07:00 Room Air 02/07/24 02:14 Room Air 02/07/24 00:00 Room Air 02/06/24 23:36
--- NOTE | 2024-02-07 11:49 | XRay Report ---
XR hip LT 2V w pelvis CLINICAL HISTORY: hip pain TECHNIQUE: 2 views of the right hip and single frontal view of the pelvis were obtained. Comparison: None available at the time of this dictation. FINDINGS: There is a fracture of the left femoral neck. Joint spaces are well-preserved. Soft tissue swelling i s seen. IMPRESSION: Fracture of the left femoral neck with associated soft tissue swelling. ACT 112: Negative or not required by law. Electronically signed by: Fercho Davis M.D. 02/07/2024 11:48 AM
--- NOTE | 2024-02-07 17:44 | Hospitalist Progress Note ---
Date of Service February 07, 2024 Assessment & Plan (1) Compression fracture of body of thoracic vertebra: Plan: Patient experienced a ground-level fall at home on 01/17/2024. She then traveled to [facility] with family and was seen in [facility] ED where she was diagnosed with a T12 compression fracture. Has had worsening pain, increased weakness, and difficulty ambulating at home recently. MRI lumbar spine on admission showed severe T12 compression deformity with m ild edema, retropulsion into the canal without cord compression. Possible, mild chronic arachnoiditis of the distal thecal sac. Ortho spine consulted Pain regimen with Tylenol, Morphine 2mg q4h pain 4-6, 4mg pain 7-10, Decadron 4 mg q8 hours, Lidocaine patch and Miacalcin nasal spray daily Hold on PT/OT until evaluated by Ortho surgery Avoid NSAIDs due to history of renal artery bypass Vitamin D level added to a.m. labs (2) Fracture of femoral neck, left: Plan: Due to decreased strength and increased pain in left lower extremity, x-ray of hip/pelvis was obtained 02/07/24. Revealed left femoral neck fracture with associated soft tissue swelling. Consulted ortho surgery Pain control as listed above Strict bedrest Continue Kunz catheter (3) UTI (urinary tract infection): Plan: UA on admission was positive for leukocyte Estrace and WBCs Urine culture pending. Continue to follow for sensitivities Per nursing, urine was foul-smelling Started ceftriaxone 1 g IV daily 02/07/2020 Plan Discussed case with Dr. Morton from orthospine Consulted Ortho surgery Started ceftriaxone, Miacalcin, lidocaine patch Ordered bedrest and n.p.o. at midnight CHRONIC STABLE CONDITIONS Insomnia - continue trazodone, mirtazapine GERD - continue pantoprazole Depression/anxiety - continue clonazepam COPD - continue home inhalers CODE STATUS: Full code VTE prophylaxis: SCD, defer pharmacologic pending ortho/spine eval Admission and Anticipated Discharge Date Admission Date: February 07, 2024 Subjective Patient seen and evaluated at bedside. We discussed the results of her lumbar MRI as well as her hip/pelvis x-ray. Patient appears very anxious in regards to plan moving forward. Her main complaint is left leg pain. She reports intermittent "severe tightness/pain" of her lateral left thigh into her groin and down her leg. She reports that any movement of her left leg is extremely painful. She denies any numbness or tingling in the left extremity. Denies bladder or bowel incontinence. Per nursing, patient's urine was foul-smelling. No additional complaints at this time. Physical Exam Physical Exam: General: No acute distress, nondiaphoretic, well-developed, well-nourished. Skin: The skin was without rashes, erythema, edema, or bruising. Cardiac: Regular rate and rhythm without murmurs gallops or rubs. Pulm: Clear to auscultation bilaterally without wheezes, rales or rhonchi. No retractions or accessory muscle use. Abdominal: Soft, nondistended, nontender. Bowel sounds present. Neuro: A&O x3. No focal neurological deficits. Extremities: Restricted range of motion of left lower extremity due to severe pain. Weakness with left plantarflexion and dorsiflexion. Limited hip flexion. Pain with internal and external rotation of left leg. Sensation intact in left leg. Posterior tibial and pedal pulses present in left leg. Results & Data Results & Data Vital Signs (Past 12 Hours) Vital Signs Temp Pulse Resp BP Pulse Ox Pulse Ox O2 Del Method 02/07/24 14:18 36.7 C 61 15 115/62 92 Room Air 02/07/24 10:00 94 02/07/24 07:45 Room Air 02/07/24 07:00 36.7 C 74 14 118/72 91 Room Air O2 Del Method 02/07/24 14:18 02/07/24 10:00 Room Air 02/07/24 07:45 02/07/24 07:00 Laboratory Results Reviewed CBC Reviewed BMP Reviewed UA/urine culture Diagnostic Findings Hip/Pelvis X-Ray 02/07/24 09:59 XR hip LT 2V w pelvis CLINICAL HISTORY: hip pain TECHNIQUE: 2 views of the right hip and single frontal view of the pelvis were obtained. Comparison: None available at the time of this dictation. FINDINGS: There is a fracture of the left femoral neck. Joint spaces are well-preserved. Soft tissue swelling is seen. IMPRESSION: Fracture of the left femoral neck with associated soft tissue swelling. ACT 112: Negative or not required by law. Electronically signed by: Fercho Davis M.D. 02/07/2024 11:48 AM PG Care Time/CCT Total # of Minutes Spent Total Time Spent with Patient: Total time spent is greater than 50% in coordination of care (as documented) at patient's floor/unit and/or counseling patient: Coding Level of Care Code 38097 SUB INP/OBS CARE 350MIN Diagnoses Compression fracture of body of thoracic vertebra S22.000A Fracture of femoral neck, left S72.002A UTI (urinary tract infection) N39.0
--- NOTE | 2024-02-07 19:18 | Orthopedic Consultation ---
Date of Consultation February 07, 2024 Assessment & Plan (1) Fracture of femoral neck, left: She has a pathological fracture of her left hip secondary to osteoporosis. She and her friends were educated about the diagnosis. We talked about treatment options which include ORIF no treatment and hemiarthroplasty. We talked about the pros and cons of each form of treatment I recommend hemiarthroplasty and she agrees to proceed. Radiographs demonstrate a mildly displaced left femoral neck fracture. There is no arthritis. She has a severe T12 compression fracture. I will communicate with Dr. Morton regarding any issues that her back may cause for treatment of her hip. Given the diffuse tenderness of the left lower extremity will get some x-rays. Given the leg and presentation we will get an ultrasound to rule out DVT. We talked about the risks of surgery including but not limited to infection b leeding pain scarring and nerve and blood vessel injury blood clot embolism heart attack stroke unequal leg lengths limp where fracture dislocation loosening. N.p.o. after midnight plan for left hip hemiarthroplasty tomorrow. We talked about postoperative recovery.Her labs are noted. Type and screen.She may have a UTI which is being treated with Rocephin. (2) Osteoporosis: History of Present Illness Attending Physician: Ole Mendiola MD History of Present Illness Merna is 68 years old. On February 15 she tripped over her comforter at home. She fell hitting her left hip and back. The following day she went on a trip to [facility]. She developed progressive discomfort mainly in her lower back. She also had progressive difficulty walking. She went to an ER in [facility] and was told that she had a complete lumbar compression fracture. She returned here to [place] and treated with her primary care physician. She eventually was told to go to the emergency room which she did today and was admitted after evaluation revealed the spine fracture. Due to continued pain in her hip area she had hip x-ray done which showed a displaced femoral neck fracture. She denies prior history of back or hip injuries although she did get some shots in her lower back many years ago. She reports that her whole left leg hurts. She has some tingling in the left lower leg area. Her leg throbs and squeezes. She could not walk normally and got around by using assistance or dragging her foot or not walking at all. Allergies Allergy/AdvReac Type Severity Reaction Status Date / Time NSAIDS (Non-Steroidal Allergy Unknown NOT TO Verified 02/06/24 20:46 Anti-Inflamma TAKE PER MD DUE TO RENAL ARTERY BYPASS Home Medications Medication Instructions Recorded Confirmed Type B6 1.7 mg-folic 400 mcg-B12 2.4 1 cap PO .[facility] 08/20/22 02/06/24 History [id number]-euvyspaymecm oral capsule (Neuriva Plus Brain Performance) biotin 10,000 mcg capsule 0 mcg PO DAILY 08/20/22 02/06/24 History vit C 250 mg-vit E 90 mg-zinc 40 1 tab PO DAILY 08/20/22 02/06/24 History mg-copper 1 [id number] capsule (PreserVision AREDS-2) mecobalamin (vitamin B12) 1,000 1,000 mcg PO .[facility] 01/12/23 02/06/24 History mcg chewable tablet gabapentin 100 mg capsule 200 mg (2 x 100 mg) PO HS #180 caps 07/01/23 02/06/24 Rx umeclidinium 62.5 mcg-vilanterol 1 inh inhalation Q24H #180 ea 07/07/23 02/06/24 Rx 25 mcg/actuation powdr for inhalation (Anoro Ellipta) clonazepam 1 mg tablet (Klonopin) 1 mg PO QID #120 tabs 10/28/23 02/06/24 Rx alendronate 70 mg tablet 70 mg PO .COMPLEX #12 tabs 12/12/23 02/06/24 Rx albuterol sulfate 90 mcg/actuation 2 puff inhalation Q4H PRN 12/24/23 02/06/24 Rx aerosol inhaler (Ventolin HFA) shortness of breath or wheezing #18 grams efinaconazole 10 % topical 1 applic topical DAILY 48 weeks #4 12/24/23 02/06/24 Rx solution with applicator mL mirtazapine 45 mg tablet 45 mg PO QPM #90 tabs 12/24/23 02/06/24 Rx omeprazole 20 mg capsule,delayed 20 mg PO DAILY #90 caps 12/24/23 02/06/24 Rx release trazodone 100 mg tablet 200 mg (2 x 100 mg) PO HS #180 tabs 12/24/23 02/06/24 Rx triamcinolone acetonide 0.1 % 1 applic topical BID #30 grams 12/24/23 02/06/24 Rx topical ointment calcitonin (salmon) 200 1 spray intranasal (ALT) DAILY 30 01/27/24 02/06/24 Rx unit/actuation nasal spray days #3.7 mL oxycodone-acetaminophen 5 mg-325 1 tab PO Q6H PRN pain 7 days #28 02/04/24 02/06/24 Rx mg tablet tabs multivitamin 1 tab PO QAM 02/06/24 02/06/24 History Patient History Medical History History of renal artery stenosis s/p right renal artery bypass 2000 Surgical History History of umbilical hernia repair History of hemorrhoidectomy History of arthroscopy of right shoulder History of total knee arthroplasty Family History Mother Pulmonary embolism Father Intracranial hemorrhage Denies family history of Ovarian cancer Prostate cancer Myocardial infarction Breast cancer Colorectal cancer Social History Smoking Status: Current every day smoker Tobacco Type: Cigarettes Age Started Using Tobacco: 16; packs per day: 0.5; Cigarettes Per Day: 2; Second Hand Exposure: No; Do You Dip or Chew Tobacco: No; Hx Alcohol Use: No Hx Substance Use: No Preferred Language: Turkmen Communication Ability: Effective Hearing Ability: Normal Consumer Lender Required: No Beliefs That Will Affect Care: None marital status: Current Living Situation: Alone current occupational status: employed current occupation: [employer] Other Information That Helps Us Care for You: No Feels Safe at Home: Yes Safety Concerns: Feels Safe At This Time Dental Care, Regularly: No Physical Activity Frequency: Does not Exercise Seatbelt Use: always Sunscreen Use: No Assistive Devices: Cane, Denture - Upper and Denture - Lower Review of Systems Review of Systems: There is no history of bleeding or blood clots metal allergy or MRSA infection. She denies diabetes heart disease lung liver kidney disease. No strokes or cancer. Physical Exam Physical Exam: She is accompanied by 2 of her friends. She is awake and alert. She has 4+ out of 5 strength to ankle and toe dorsiflexion plantarflexion inversion and eversion. Knee flexion and extension strength cannot be assessed secondary to her discomfort. She is unable to do an active straight leg raise. Her DP and PT pulses are 1+ palpable. She reports dysesthesias to touch in the left lower extremity essentially over the whole foot ankle and lower leg area. There is tenderness to palpation from the ankle and inconsistently over the tibia into the knee and thigh area. Tenderness to palpation in the left hip. She reports that the leg has been swollen but she does not note any particular bruising. Actively she is able to flex her knee about 20 to 30 degrees but cannot do any more because of pain in the left knee area. My attempts to flex her knee and hip I can probably get her to 45 degrees of knee flexion and about 45 degrees of hip flexion before she has significant discomfort. Rotatory movements of the left hip cause significant increase in discomfort. Her leg is not swollen her compartments are soft. She has a incision from a prior left total knee arthroplasty. She reports tingling in the left leg somewhat nonspecific but different from the right. Over the leg area and top of the foot but not necessarily on the bottom. Results & Data Vital Signs (Past 12 Hours) Vital Signs Temp Pulse Resp BP Pulse Ox Pulse Ox O2 Del Method 02/07/24 14:18 36.7 C 61 15 115/62 92 Room Air 02/07/24 10:00 94 02/07/24 07:45 Room Air O2 Del Method 02/07/24 14:18 02/07/24 10:00 Room Air 02/07/24 07:45 Laboratory Results Laboratory Results WBC 3.43 K/ul (4.8-10.8) L 02/07/24 09:08 RBC 4.59 M/uL (4.20-5.40) 02/07/24 09:08 Hgb 14.2 g/dl (12.0-16.0) 02/07/24 09:08 Hct 43.3 % (37.0-47.0) 02/07/24 09:08 MCV 94.3 fL (80.0-100.0) 02/07/24 09:08 MCH 30.9 pg (25.0-34.0) 02/07/24 09:08 MCHC 32.8 g/dL (32.0-36.0) 02/07/24 09:08 RDW Std Deviation 42.9 fL (36.4-46.3) 02/07/24 09:08 RDW Coeff of Josie 12.4 % (11.5-14.5) 02/07/24 09:08 Plt Count 227 K/uL (130-400) 02/07/24 09:08 MPV 9.9 fL (9.4-12.4) 02/07/24 09:08 Immature Gran % (Auto) 0.2 % 02/06/24 16:35 Neut % (Auto) 69.8 % 02/06/24 16:35 Lymph % (Auto) 20.0 % 02/06/24 16:35 [place] % (Auto) 8.6 % 02/06/24 16:35 Eos % (Auto) 0.8 % 02/06/24 16:35 Baso % (Auto) 0.6 % 02/06/24 16:35 Neut # (Auto) 3.66 K/uL (1.40-6.50) 02/06/24 16:35 Lymph # (Auto) 1.05 K/uL (1.20-3.40) L 02/06/24 16:35 [place] # (Auto) 0.45 K/uL (0.11-0.59) 02/06/24 16:35 Eos # (Auto) 0.04 K/uL (0.00-0.50) 02/06/24 16:35 Baso # (Auto) 0.03 K/uL (0.00-0.20) 02/06/24 16:35 Immature Gran # (Auto) 0.01 K/uL (0.01-0.20) 02/06/24 16:35 Sodium 137 mmol/L (136-145) 02/07/24 09:08 Potassium 4.3 mmol/L (3.5-5.1) 02/07/24 09:08 Chloride 102 mmol/L (98-107) 02/07/24 09:08 Carbon Dioxide 28 mmol/L (21-32) 02/07/24 09:08 Anion Gap 7 (3-11) 02/07/24 09:08 BUN 11 mg/dl (6-23) 02/07/24 09:08 Creatinine 0.56 mg/dl (0.6-1.2) L 07/06/24 09:08 Est Cr Clr Drug Dosing 79.7 ml/min 02/07/24 09:08 Est GFR ( Amer) 109.5 ml/min 02/07/24 09:08 Est GFR (Non-Af Amer) 94.5 ml/min 02/07/24 09:08 BUN/Creatinine Ratio 19.6 (10-20) 02/07/24 09:08 Glucose 126 mg/dl (70-99(Fasting)) H 02/07/24 09:08 Calcium 8.7 mg/dl (8.6-10.3) 02/07/24 09:08 Magnesium 1.9 mg/dl (1.7-2.4) 02/07/24 09:08 Total Bilirubin 0.6 mg/dl (0.2-1.0) 02/06/24 16:35 AST 19 U/L (13-39) 02/06/24 16:35 ALT 10 U/L (7-52) 02/06/24 16:35 Alkaline Phosphatase 96 U/L (34-104) 02/06/24 16:35 Total Protein 7.3 gm/dl (6.0-8.3) 02/06/24 16:35 Albumin 4.0 gm/dl (3.4-5.0) 02/06/24 16:35 Globulin 3.3 gm/dl (2.5-4.0) 02/06/24 16:35 Albumin/Globulin Ratio 1.2 (0.9-2) 02/06/24 16:35 Urine Color Yellow 02/07/24 06:35 Urine Appearance Clear (Clear) 02/07/24 06:35 Urine pH 7.0 (4.5-7.5) 02/07/24 06:35 Ur Specific Purm[place] 1.014 (1.000-1.030) 02/07/24 06:35 Urine Protein Negative (Negative) 02/07/24 06:35 Urine Glucose (UA) Negative (Negative) 02/07/24 06:35 Urine Ketones Trace (Negative) H 02/07/24 06:35 Urine Blood Negative (Negative) 02/07/24 06:35 Urine Nitrite Negative (Negative) 02/07/24 06:35 Urine Bilirubin Negative (Negative) 07/06/24 06:35 Urine Urobilinogen Negative (Negative) 02/07/24 06:35 Ur Leukocyte Esterase 3+ (Negative) H 02/07/24 06:35 Urine WBC (Auto) >50 /hpf (0-5) H 02/07/24 06:35 Urine RBC (Auto) 0-2 /hpf (0-2) 02/07/24 06:35 U Hyaline Cast (Auto) 0-2 /lpf (0-2) 02/07/24 06:35 U Epithel Cells (Auto) 0-2 /hpf (0-2) 02/07/24 06:35 Urine Bacteria (Auto) None Seen (None Seen) 02/07/24 06:35 Impressions Lumbar Spine MRI 02/06/24 18:17 Exam(s): MRI L SPINE Without Contrast EXAM: MR Lumbar Spine Without Intravenous Contrast CLINICAL HISTORY: Reason for exam: lumbar compression fx, L leg weakness. TECHNIQUE: Magnetic resonance images of the lumbar spine without intravenous contrast in multiple planes. COMPARISON: None. FINDINGS: Vertebrae: Severe biconcave T12 compression deformity with retropulsion. Mild underlying edema is nonspecific, could reflect subacute fracture with ongoing healing. Avascular necrosis is also a consideration. No other compression deformity or marrow edema. No discitis or osteomyelitis. Conus: Terminates normally, no abnormal signal. Normal rootlets of the cauda equina, with possible mild, chronic arachnoiditis of the distal thecal sac. Soft tissues: No epidural hematoma or paraspinous mass. DISCS/SPINAL CANAL/NEURAL FORAMINA: T12-L1: T12 retropulsion with narrowing of the spinal canal, though CSF persists dorsal to the conus and there is no spinal stenosis. L1-L2: Unremarkable for age. L2-L3: Moderate degenerative disc disease. L3-L4: Moderate degenerative disc disease. L4-L5: Moderate degenerative disc disease. L5-S1: Unremarkable for age. OTHER: No isolated disc herniation. Moderate to severe facet hypertrophy. No significant central spinal stenosis. IMPRESSION: 1. Severe T12 compression deformity with mild edema, possible subacute fracture with ongoing healing. Avascular necrosis felt less likely, not excluded. 2. Possible, mild chronic arachnoiditis of the distal thecal sac. 3. Moderate degenerative disc disease, without disc herniation or central spinal stenosis. 4. No disc herniation, central spinal stenosis, marrow edema, acute fracture, discitis/osteomyelitis or abnormal signal in the conus. Electronically signed by: Alfreda Oh M.D. 02/06/24 21:51 PM Hip/Pelvis X-Ray 02/07/24 09:59 XR hip LT 2V w pelvis CLINICAL HISTORY: hip pain TECHNIQUE: 2 views of the right hip and single frontal view of the pelvis were obtained. Comparison: None available at the time of this dictation. FINDINGS: There is a fracture of the left femoral neck. Joint spaces are well-preserved. Soft tissue swelling is seen. IMPRESSION: Fracture of the left femoral neck with associated soft tissue swelling. ACT 112: Negative or not required by law. Electronically signed by: Fercho Davis M.D. 02/07/2024 11:48 AM
[2024-02-07] MEDS: LIDOCAINE 5% 1 PATCH TD SCH (20:37)
[2024-02-07] MEDS: cefTRIAXone SODIUM 1,000 MG/50 ML BAG IV SCH (20:37)
[2024-02-07] MEDS: GABAPENTIN 100 MG CAP PO SCH (21:14)
[2024-02-07] MEDS: MIRTAZAPINE SOLTAB 15 MG PO SCH (21:14)
[2024-02-07] MEDS: traZODone HCL 100 MG TAB PO SCH (21:14)
--- NOTE | 2024-02-08 01:22 | Ultrasound Report ---
Exam(s): US VENOUS LEFT LOWER EXTREMITY EXAM: US Duplex Left Lower Extremity Veins CLINICAL HISTORY: Hip fracture. TECHNIQUE: Real-time duplex ultrasound scan of the left lower extremity veins integrating B-mode two-dimensional vascular structure, Doppler spectral analysis, color flow Doppler imaging and compression. COMPARISON: No relevant prior studies available. FINDINGS: Deep veins: Unremarkable. No Deep vein thrombosis in the visualized common femoral, femoral, proximal deep femoral or popliteal veins. The veins demonstrate normal color flow, are normally compressible, with normal phasic flow and/or augmentation response. Superficial veins: Unremarkable. No thrombus in the visualized great saphenous vein. Soft tissues: Nonspecific subcutaneous edema. No popliteal cyst. IMPRESSION: 1. Nonspecific subcutaneous edema. 2. No deep vein thrombosis of the left lower extremity. Electronically signed by: Ashlie Guerrero MD 02/08/24 01:21 AM
[2024-02-08 06:46] LABS: Hematocrit (blood only) 43.1 % (37.0-47.0); Hemoglobin 14.4 g/dl (12.0-16.0); Mean Corpuscular Hemoglobin 31.4 pg (25.0-34.0); Mean Corpuscular Hgb Conc 33.4 g/dL (32.0-36.0); Mean Corpuscular Volume 94.1 fL (80.0-100.0); Mean Platelet Volume 10.3 fL (9.4-12.4); Platelet Count 246 K/uL (130-400); RDW Coefficient of Variation 12.2 % (11.5-14.5); RDW Standard Deviation 42.1 fL (36.4-46.3); Red Blood Count 4.58 M/uL (4.20-5.40); White Blood Count 2.69 K/ul (4.8-10.8)
[2024-02-08 07:12] LABS: BUN Creatinine Ratio 33.3 (10-20); Creatinine Clr Calc Pharmacy 80.7 ml/min; Est GFR (African American) 110.8 ml/min; Est GFR (Non-African American) 95.6 ml/min; Potassium 4.6 mmol/L (3.5-5.1)
--- NOTE | 2024-02-08 08:11 | XRay Report ---
XR chest 1V portable CLINICAL HISTORY: hip fracture TECHNIQUE: Single frontal radiograph of the chest was obtained. Comparison: Comparison is made to chest radiograph 05/18/2012 FINDINGS: No lines and tubes are seen. Calcified aortic knob is seen. Left humeral fixation hardware is seen. R eticular interstitial opacities are seen. No evidence of pleural effusion or pneumothorax. IMPRESSION: No acute chest disease. ACT 112: Negative or not required by law. Electronically signed by: Fercho Davis M.D. 02/08/2024 8:09 AM
--- NOTE | 2024-02-08 08:12 | XRay Report ---
XR foot LT min 3V routine, XR ankle LT min 3V routine, XR tibia fibula LT 2V CLINICAL HISTORY: pain TECHNIQUE: 3 views of the left foot and 3 views of the left ankle and 2 views of the left tibia and f ibula were obtained. Comparison: None available at the time of this dictation. FINDINGS: No fractures are present. Degenerative changes are seen. Plantar enthesophytes are seen. No soft tiss ue abnormality is seen. IMPRESSION: Degenerative changes without evidence of acute fracture. ACT 112: Negative or not required by law. Electronically signed by: Fercho Davis M.D. 02/08/2024 8:11 AM
--- NOTE | 2024-02-08 08:13 | XRay Report ---
XR knee LT 3V, XR femur LT 2V routine CLINICAL HISTORY: pain TECHNIQUE: 2 views of the left knee and 2 views of the left femur were obtained. Comparison: None available at the time of this dictation. FINDINGS: There is an acute fracture of the left femoral neck. Overriding of the fragments is seen. Patient is status post total knee arthroplasty. No perihardware lucency or hardware fracture is seen. No joint e ffusion is seen. Soft tissue swelling is seen about the knee. IMPRESSION: Left femoral neck fracture with associated soft tissue swelling. ACT 112: Negative or not required by law. Electronically signed by: Fercho Davis M.D. 02/08/2024 8:12 AM
[2024-02-08] MEDS: CALCITONIN SALMON NA 200 IU/AC 3.7 ML BTL SCH (08:37)
[2024-02-08] MEDS ORDERED: ONDANSETRON INJ 2 MG/ML 2 ML VIAL ONE (10:05)
[2024-02-08] MEDS ORDERED: MIDAZOLAM HCL 1 MG/ML 2ML VIAL ONE (10:05)
[2024-02-08] MEDS ORDERED: ROCURONIUM BROMIDE 10 MG/ML 5 ML VIAL IV ONE ×2 (10:05→14:38)
[2024-02-08] MEDS ORDERED: fentaNYL citrate PF 100 MCG/2 ML VIAL ONE ×3 (10:05→16:03)
[2024-02-08] MEDS ORDERED: PROPOFOL IV EMULSION 10 MG/ML 20 ML VIAL IV ONE (10:05)
[2024-02-08] MEDS ORDERED: DEXAMETHASONE SOD INJ 4 MG/ML VIAL ONE (10:05)
[2024-02-08] MEDS ORDERED: LIDOCAINE 2% 2 ML VIAL/AMP(20MG/ML) INFIL ONE (10:05)
[2024-02-08] MEDS: ERGOCALCIFEROL 1250 MCG (50,000 UNITS) CAP PO SCH (11:18)
--- NOTE | 2024-02-08 11:37 | Hospitalist Progress Note ---
Date of Service February 08, 2024 Assessment & Plan (1) Compression fracture of body of thoracic vertebra: Plan: Patient experienced a ground-level fall at home on 01/17/2024. She then traveled to [facility] with family and was seen in [facility] ED where she was diagnosed with a T12 compression fracture. Has had worsening pain, increased weakness, and difficulty ambulating at home recently. MRI lumbar spine on admission showed severe T12 compression deformity with m ild edema, retropulsion into the canal without cord compression. Possible, mild chronic arachnoiditis of the distal thecal sac. Ortho spine consulted Pain regimen with Tylenol, Morphine 2mg q4h pain 4-6, 4mg pain 7-10, Decadron 4 mg q8 hours, Lidocaine patch and Miacalcin nasal spray daily. Hold on PT/OT until evaluated by Ortho surgery Avoid NSAIDs due to history of renal artery bypass Vitamin D level low at 9.2 on 02/08/24. > Start Vit D3 supplementation at 1250 mcg PO weekly x 8 weeks. Then continue with 20 mcg daily. Recommend repeat Vit D level in 3-4 months. (2) Fracture of femoral neck, left: Plan: Due to decreased strength and increased pain in left lower extremity, x-ray of hip/pelvis was obtained 02/07/24. Revealed left femoral neck fracture with associated soft tissue swelling. Consulted ortho surgery > X-rays of left foot, ankle tibia/fibula, knee unremarkable. Venous doppler of LLE negative for DVT. CXR negative. > Plan for L hip hemiarthroplasty with Dr. Barclay on 02/08/24. > Blood typed and screened. Pain control as listed above Strict bedrest Continue Kunz catheter Defer PT/OT evals until instructed by ortho (3) UTI (urinary tract infection): Plan: UA on admission was positive for leukocyte Estrace and WBCs Urine culture shows pin-point growth, re-inocubating. Continue to follow for sensitivities Per nursing, urine was foul-smelling Started ceftriaxone 1 g IV daily 02/07/2020 Plan Started Vit D3 supplementation CHRONIC STABLE CONDITIONS Insomnia - continue trazodone, mirtazapine GERD - continue pantoprazole Depression/anxiety - continue clonazepam COPD - continue home inhalers CODE STATUS: Full code VTE prophylaxis: SCD, defer pharmacologic pending ortho/spine eval Admission and Anticipated Discharge Date Admission Date: February 07, 2024 Subjective Patient seen and evaluated at bedside this morning. She is going to the OR later today for left hip hemiarthroplasty with Dr. Barclay. She reports that her pain is controlled at the moment (was given morphine shortly before my evaluation). We discussed the results of her other x-rays yesterday and the plan to start vitamin D supplementation. Patient has no additional complaints or concerns at this time. Physical Exam Physical Exam: General: No acute distress, nondiaphoretic, well-developed, well-nourished. Skin: The skin was without rashes, erythema, edema, or bruising. Cardiac: Regular rate and rhythm without murmurs gallops or rubs. Pulm: Clear to auscultation bilaterally without wheezes, rales or rhonchi. No retractions or accessory muscle use. Abdominal: Soft, nondistended, nontender. Bowel sounds present. Neuro: A&O x3. No focal neurological deficits. Extremities: Restricted range of motion of left lower extremity due to severe pain. Weakness with left plantarflexion and dorsiflexion. Limited hip flexion. Pain with internal and external rotation of left leg. Sensation intact in left leg. Posterior tibial and pedal pulses present in left leg. Results & Data Results & Data Vital Signs (Past 12 Hours) Vital Signs Temp Pulse Resp BP Pulse Ox Pulse Ox O2 Del Method 02/08/24 10:00 93 02/08/24 10:00 36.5 C 50 L 14 123/63 93 Room Air 02/08/24 06:54 36.4 C L 56 L 18 97/55 L 92 Room Air O2 Del Method 02/08/24 10:00 Room Air 02/08/24 10:00 02/08/24 06:54 Laboratory Results Reviewed CBC Reviewed BMP Diagnostic Findings Reviewed x-rays of left ankle, foot, tibia/fibula, knee, femur. Reviewed venous doppler LLE. Reviewed CXR. Ankle X-Ray 02/07/24 18:59 XR foot LT min 3V routine, XR ankle LT min 3V routine, XR tibia fibula LT 2V CLINICAL HISTORY: pain TECHNIQUE: 3 views of the left foot and 3 views of the left ankle and 2 views of the left tibia and fibula were obtained. Comparison: None available at the time of this dictation. FINDINGS: No fractures are present. Degenerative changes are seen. Plantar enthesophytes are seen. No soft tissue abnormality is seen. IMPRESSION: Degenerative changes without evidence of acute fracture. ACT 112: Negative or not required by law. Electronically signed by: Fercho Davis M.D. 02/08/2024 8:11 AM Femur X-Ray 02/07/24 18:59 XR knee LT 3V, XR femur LT 2V routine CLINICAL HISTORY: pain TECHNIQUE: 2 views of the left knee and 2 views of the left femur were obtained. Comparison: None available at the time of this dictation. FINDINGS: There is an acute fracture of the left femoral neck. Overriding of the fragments is seen. Patient is status post total knee arthroplasty. No perihardware lucency or hardware fracture is seen. No joint effusion is seen. Soft tissue swelling is seen about the knee. IMPRESSION: Left femoral neck fracture with associated soft tissue swelling. ACT 112: Negative or not required by law. Electronically signed by: Fercho Davis M.D. 02/08/2024 8:12 AM Foot X-Ray 02/07/24 18:59 XR foot LT min 3V routine, XR ankle LT min 3V routine, XR tibia fibula LT 2V CLINICAL HISTORY: pain TECHNIQUE: 3 views of the left foot and 3 views of the left ankle and 2 views of the left tibia and fibula were obtained. Comparison: None available at the time of this dictation. FINDINGS: No fractures are present. Degenerative changes are seen. Plantar enthesophytes are seen. No soft tissue abnormality is seen. IMPRESSION: Degenerative changes without evidence of acute fracture. ACT 112: Negative or not required by law. Electronically signed by: Fercho Davis M.D. 02/08/2024 8:11 AM Knee X-Ray 02/07/24 18:59 XR knee LT 3V, XR femur LT 2V routine CLINICAL HISTORY: pain TECHNIQUE: 2 views of the left knee and 2 views of the left femur were obtained. Comparison: None available at the time of this dictation. FINDINGS: There is an acute fracture of the left femoral neck. Overriding of the fragments is seen. Patient is status post total knee arthroplasty. No perihardware lucency or hardware fracture is seen. No joint effusion is seen. Soft tissue swelling is seen about the knee. IMPRESSION: Left femoral neck fracture with associated soft tissue swelling. ACT 112: Negative or not required by law. Electronically signed by: Fercho Davis M.D. 02/08/2024 8:12 AM Tibia/Fibula X-Ray 02/07/24 18:59 XR foot LT min 3V routine, XR ankle LT min 3V routine, XR tibia fibula LT 2V CLINICAL HISTORY: pain TECHNIQUE: 3 views of the left foot and 3 views of the left ankle and 2 views of the left tibia and fibula were obtained. Comparison: None available at the time of this dictation. FINDINGS: No fractures are present. Degenerative changes are seen. Plantar enthesophytes are seen. No soft tissue abnormality is seen. IMPRESSION: Degenerative changes without evidence of acute fracture. ACT 112: Negative or not required by law. Electronically signed by: Fercho Davis M.D. 02/08/2024 8:11 AM Venous Doppler Study 02/07/24 18:59 Exam(s): US VENOUS LEFT LOWER EXTREMITY EXAM: US Duplex Left Lower Extremity Veins CLINICAL HISTORY: Hip fracture. TECHNIQUE: Real-time duplex ultrasound scan of the left lower extremity veins integrating B-mode two-dimensional vascular structure, Doppler spectral analysis, color flow Doppler imaging and compression. COMPARISON: No relevant prior studies available. FINDINGS: Deep veins: Unremarkable. No Deep vein thrombosis in the visualized common femoral, femoral, proximal deep femoral or popliteal veins. The veins demonstrate normal color flow, are normally compressible, with normal phasic flow and/or augmentation response. Superficial veins: Unremarkable. No thrombus in the visualized great saphenous vein. Soft tissues: Nonspecific subcutaneous edema. No popliteal cyst. IMPRESSION: 1. Nonspecific subcutaneous edema. 2. No deep vein thrombosis of the left lower extremity. Electronically signed by: Ashlie Guerrero MD 02/08/24 01:21 AM Chest X-Ray 02/07/24 19:04 XR chest 1V portable CLINICAL HISTORY: hip fracture TECHNIQUE: Single frontal radiograph of the chest was obtained. Comparison: Comparison is made to chest radiograph 05/18/2012 FINDINGS: No lines and tubes are seen. Calcified aortic knob is seen. Left humeral fixation hardware is seen. Reticular interstitial opacities are seen. No evidence of pleural effusion or pneumothorax. IMPRESSION: No acute chest disease. ACT 112: Negative or not required by law. Electronically signed by: Fercho Davis M.D. 02/08/2024 8:09 AM PG Care Time/CCT Total # of Minutes Spent Total Time Spent with Patient: Total time spent is greater than 50% in coordination of care (as documented) at patient's floor/unit and/or counseling patient: Coding Level of Care Code 11705 SUB INP/OBS CARE 2MIN Diagnoses Compression fracture of body of thoracic vertebra S22.000A Fracture of femoral neck, left S72.002A UTI (urinary tract infection) N39.0
--- NOTE | 2024-02-08 13:02 | Anesthesiology Consultation ---
Date of Service February 08, 2024 Assessment & Plan Chart Review Chart Review: Acceptable Risk for Surgery and Patient NOT seen in Pre Admission Testing Consults Requested none History Surgery Operation Date: 02/08/24 12:00 Proposed Procedures p Bipolar Hip Prosthesis(Left) - Cosmo Barclay MD Height/Weight Height: 5 ft 8 in Weight: 52.753 kg Allergies Allergy/AdvReac Type Severity Reaction Status Date / Time NSAIDS (Non-Steroidal Allergy Unknown NOT TO Verified 02/06/24 20:46 Anti-Inflamma TAKE PER MD DUE TO RENAL ARTERY BYPASS Medications Home Medications Medication Instructions Recorded Confirmed Last Taken B6 1.7 mg-folic 400 mcg-B12 2.4 1 cap PO .SA 08/20/22 02/06/24 Unknown usb-egmxcr-huzftktqodhi oral capsule (Neuriva Plus Brain Performance) biotin 10,000 mcg capsule 0 mcg PO DAILY 08/20/22 02/06/24 Unknown vit C 250 mg-vit E 90 mg-zinc 40 1 tab PO DAILY 08/20/22 02/06/24 Unknown mg-copper 1 og-zdyycu-fpcjbq capsule (PreserVision AREDS-2) mecobalamin (vitamin B12) 1,000 1,000 mcg PO .SA 01/12/23 02/06/24 Unknown mcg chewable tablet gabapentin 100 mg capsule 200 mg (2 x 100 mg) PO HS #180 caps 07/01/23 02/06/24 Unknown umeclidinium 62.5 mcg-vilanterol 1 inh inhalation Q24H #180 ea 07/07/23 02/06/24 Unknown 25 mcg/actuation powdr for inhalation (Anoro Ellipta) clonazepam 1 mg tablet (Klonopin) 1 mg PO QID #120 tabs 10/28/23 02/06/24 Unknown alendronate 70 mg tablet 70 mg PO .COMPLEX #12 tabs 12/12/23 02/06/24 Unknown albuterol sulfate 90 mcg/actuation 2 puff inhalation Q4H PRN 12/24/23 02/06/24 Unknown aerosol inhaler (Ventolin HFA) shortness of breath or wheezing #18 grams efinaconazole 10 % topical 1 applic topical DAILY 48 weeks #4 12/24/23 02/06/24 Unknown solution with applicator mL mirtazapine 45 mg tablet 45 mg PO QPM #90 tabs 12/24/23 02/06/24 Unknown omeprazole 20 mg capsule,delayed 20 mg PO DAILY #90 caps 12/24/23 02/06/24 Unknown release trazodone 100 mg tablet 200 mg (2 x 100 mg) PO HS #180 tabs 12/24/23 02/06/24 Unknown triamcinolone acetonide 0.1 % 1 applic topical BID #30 grams 12/24/23 02/06/24 Unknown topical ointment calcitonin (salmon) 200 1 spray intranasal (ALT) DAILY 30 01/27/24 02/06/24 Unknown unit/actuation nasal spray days #3.7 mL oxycodone-acetaminophen 5 mg-325 1 tab PO Q6H PRN pain 7 days #28 02/04/24 02/06/24 Unknown mg tablet tabs multivitamin 1 tab PO QAM 02/06/24 02/06/24 Unknown Active Medications Generic Name Dose Route Start Last Admin Trade Name Freq PRN Reason Stop Dose Admin Acetaminophen 1,000 mg 02/07/24 04:16 02/07/24 08:00 Acetaminophen 500 Mg Tab PO 03/08/24 04:15 1,000 mg Q8H PRN Administration Pain first line Calcitonin [place] 1 sprays 02/08/24 09:00 02/08/24 08:37 Calcitonin [place] Na 200 Iu/Ac 3.7 Ml Btl NA 03/09/24 08:59 1 sprays DAILY ALFREDO Administration Clonazepam 1 mg 02/07/24 09:00 02/08/24 12:03 Clonazepam 1 Mg Tab PO 03/08/24 08:59 1 mg QID ALFREDO Administration Cyanocobalamin 1,000 mcg 02/07/24 09:00 02/08/24 08:38 Cyanocobalamin (B-12) 500 Mcg Tablet PO 03/08/24 08:59 1,000 mcg SuFrSa@0900 ALFREDO Administration Ergocalciferol 1,250 mcg 02/08/24 11:00 02/08/24 11:18 Ergocalciferol 1250 Mcg (50,000 Units) Cap PO 03/28/24 11:01 1,250 mcg Leal@1100 ALFREDO Administration Gabapentin 200 mg 02/07/24 21:00 02/07/24 21:14 Gabapentin 100 Mg Cap PO 03/08/24 20:59 200 mg HS ALFREDO Administration Dexamethasone 4 mg/ Syringe 1 mls @ 1 mls/min 02/07/24 09:00 02/08/24 08:38 IV 03/08/24 08:59 1 mls/min Q8H ALFREDO Administration Ceftriaxone Sodium 1,000 mg in 50 mls @ 100 mls/hr 02/07/24 19:00 02/07/24 21:20 Rocephin IV 02/12/24 18:59 Infused Q24H ALFREDO Infusion Lidocaine 1 patch 02/07/24 19:00 02/08/24 08:38 Lidocaine 5% 1 Patch TD 03/08/24 18:59 1 patch QAM ALFREDO Administration Mirtazapine 45 mg 02/07/24 21:00 02/07/24 21:14 Mirtazapine Soltab 15 Mg PO 03/08/24 20:59 45 mg QPM ALFREDO Administration Miscellaneous 1 each 02/07/24 08:00 02/08/24 08:36 Efinaconazole 10% Soln: Order Awaiting Action N/A 03/08/24 07:59 Not Given QS ALFREDO Miscellaneous 1 each 02/07/24 23:00 02/08/24 01:05 Remove Lidoderm Patch N/A 03/08/24 22:59 1 each DAILY@2100 ALFREDO Administration Morphine Sulfate 2 mg 02/07/24 02:23 02/08/24 08:55 Morphine Sulfate 2 Mg/Ml Carp IV 02/21/24 02:22 2 mg Q4H PRN Administration Pain 4-6 Morphine Sulfate 4 mg 02/07/24 02:23 02/08/24 11:10 Morphine Sulfate 4 Mg/Ml 1 Ml Carp\Vial IV 02/21/24 02:22 4 mg Q4H PRN Administration Pain 7-10 Multivitamins 1 tab 02/07/24 09:00 02/08/24 08:39 Multivitamin Tab PO 03/08/24 08:59 1 tab QAM ALFREDO Administration Pantoprazole Sodium 40 mg 02/07/24 09:00 02/08/24 08:39 Pantoprazole 40 Mg Tab PO 03/08/24 08:59 40 mg DAILY ALFREDO Administration Trazodone HCl 200 mg 02/07/24 21:00 02/07/24 21:14 Trazodone Hcl 100 Mg Tab PO 08/05/24 20:59 200 mg HS ALFREDO Administration Triamcinolone Acetonide 1 appln 02/07/24 09:00 02/08/24 08:39 Triamcinolone Acet 0.1% Oint 15 Gm Tube TOP 03/08/24 08:59 1 appln BID ALFREDO Administration Umeclidinium/Vilanterol 1 puffs 02/07/24 09:00 02/08/24 08:39 Umeclidinium/Vilanterol 62.5/25mcg 7 Puffs/Inhaler INH 03/08/24 08:59 1 puffs DAILY ALFREDO Administration NPO Date Last Intake of Fluids: 02/08/24 Time Last Intake of Fluids: 11:30 Last Intake of Fluids Comment: sip of water with medication/small amt of ice chips Date Last Intake of Solids: 02/07/24 Time Last Intake of Solids: 21:00 Past Medical History Medical History (Updated 02/08/24 @ 08:03 by Enrike Eddy MD) Closed T12 fracture Fracture of femoral neck, left Compression fracture of body of thoracic vertebra (01/19/24) patient had a traumatic fall and sustained compression fractures in T12, L3 and L4-per the [facility] ED report dated 01/19/24 Chronic obstructive pulmonary disease History of renal artery stenosis s/p right renal artery bypass 1999 Past Family History Family History Mother Pulmonary embolism Father Intracranial hemorrhage Denies family history of Ovarian cancer Prostate cancer Myocardial infarction Breast cancer Colorectal cancer Past Surgical History Surgical History History of umbilical hernia repair History of hemorrhoidectomy History of arthroscopy of right shoulder History of total knee arthroplasty Social History Smoking Status: Current every day smoker Smoking cigarettes per day: 2 Do You Dip or Chew Tobacco: No Hx Alcohol Use: No Alcohol type: wine Hx Substance Use: No Physical Exam Vital Signs Last Vital Signs Temp 36.5 C 02/08/24 10:00 Pulse 50 L 02/08/24 10:00 Resp 14 02/08/24 10:00 BP 123/63 02/08/24 10:00 Pulse Ox 93 02/08/24 10:00 O2 Del Method Room Air 02/08/24 10:00 Testing Laboratory Results 02/08/24 05:49 02/08/24 05:49 Urine Color Yellow 02/07/24 06:35 Urine Appearance Clear (Clear) 02/07/24 06:35 Urine pH 7.0 (4.5-7.5) 02/07/24 06:35 Ur Specific [place] 1.014 (1.000-1.030) 02/07/24 06:35 Urine Protein Negative (Negative) 02/07/24 06:35 Urine Glucose (UA) Negative (Negative) 02/07/24 06:35 Urine Ketones Trace (Negative) H 02/07/24 06:35 Urine Nitrite Negative (Negative) 02/07/24 06:35 Ur Leukocyte Esterase 3+ (Negative) H 02/07/24 06:35 Urine WBC (Auto) >50 /hpf (0-5) H 02/07/24 06:35 Urine RBC (Auto) 0-2 /hpf (0-2) 02/07/24 06:35 U Hyaline Cast (Auto) 0-2 /lpf (0-2) 02/07/24 06:35 U Epithel Cells (Auto) 0-2 /hpf (0-2) 02/07/24 06:35 Urine Bacteria (Auto) None Seen (None Seen) 02/07/24 06:35 Blood Type A Positive 02/07/24 19:05 Antibody Screen NEGATIVE 02/07/24 19:05 02/07/24 06:35 Urine Culture - Preliminary Urine,Clean Catch Pin-point growth present, reincubating.
[2024-02-08] MEDS ORDERED: KETAMINE HCL 10MG/ML SYR ONE (13:04)
[2024-02-08] MEDS ORDERED: ATROPINE SULFATE 0.1 MG/ML 10ML SYR IV PRN (13:16)
[2024-02-08] MEDS ORDERED: ePHEDrine sulfate 50 MG/ML AMP IV PRN (13:16)
--- NOTE | 2024-02-08 13:19 | History & Physical Bridge Note ---
Date of Service February 08, 2024 History & Physical Bridge Note I have examined the patient, reviewed the History & Physical and in the interval since the performance of the History & Physical I have noted the following changes of clinical significance: no changes noted
[2024-02-08] MEDS ORDERED: ceFAZolin 330 MG/ML 1 GM VIAL ONE (13:45)
[2024-02-08] MEDS ORDERED: TRANEXAMIC ACID / 0.7% NACL 1000MG/100ML BAG IV ONE (13:45)
[2024-02-08] MEDS: ceFAZolin 2000MG 2,000 MG/15 ML SYR IV ONE (13:48)
[2024-02-08] MEDS: TRANEXAMIC ACID / 0.7% NACL 1000MG/100ML BAG IV ONE (13:48)
[2024-02-08] MEDS ORDERED: ALBUTEROL HFA 8 GM INHALER INH ONE (13:56)
[2024-02-08] MEDS: THROMBIN FOR SOLN 20000 UNIT KIT ONE (15:18)
[2024-02-08] MEDS: VANCOMYCIN HCL 1000MG/20ML VIAL ONE ×2 (15:18)
[2024-02-08] MEDS ORDERED: SUGAMMADEX SODIUM 200 MG/2 ML VIAL IV ONE (15:45)
[2024-02-08] MEDS: BUPIVACAINE 0.5 % 5 MG/1 ML MPF 30ML VIAL ONE (16:10)
--- NOTE | 2024-02-08 16:27 | Operative Report ---
Post Operative Report Pre & Post Diagnosis Operation Date: 02/08/24 12:00 Pre-Op Diagnosis: Fracture of Femoral Neck Left Post-Op Diagnosis: Fracture of Femoral Neck Left I identified the patient and participated in the time-out.: No Procedure Operation Date: 02/08/24 12:00 Actual Procedures p Left Bipolar Hip Prosthesis-Cemented(Left) - Cosmo Barclay MD Surgeon Cosmo Barclay MD Uniform [employer] None Estimated Blood Loss 50 Findings Consistent with Post-Op Diagnosis Specimens Resected femoral head Anesthesia Type General Regional Complications none Disposition Accompanied Patient To Recovery: No Disposition: Recovery Room Indications Merna is 68 years old. 3 weeks ago she fell injured her back and left hip. Due to ongoing pain she came to the ER. She was evaluated and found to have a T12 compression fracture and a displaced left femoral neck fracture. Partial hip replacement was recommended and she agreed to proceed. Description of Procedure Informed consent. Patient identified. She identified the procedure site as the left hip. I marked with my initials. A preoperative surgical timeout was performed. A preop dose of IV antibiotics was given. She was taken to the OR positioned supine on the OR table. TXA given. She was positioned decubitus with the left side up. The Stolberg positioner was utilized. Axillary roll inserted. Bony prominences inspected and padded. Prior to the evaluation she had good range of motion of the left hip. Good hip flexion with no crepitation on rotation. No bruising or swelling was evident. The leg was prepped and draped in the usual sterile fashion. DVT prophylaxis intraoperatively with mechanical devices. Postop early mobility mechanical devices and Eliquis. A posterior approach to the hip was made. The IT band and gluteal fascia were divided in line with the incision. The trochanteric bursa was thickened and was resected. The short external rotators were elevated up off of the proximal femur and tagged. The gluteus minimus was elevated up off of the capsule. A capsulotomy was performed and preserved for later repair. The femoral neck was intact. There was some hemorrhage within the joint which was evacuated. The entire joint was dislocated in 1 piece. The neck cut was made using the provided guide 1 fingerbreadth above the trochanter. This was followed by the box cutting guide canal finder and lateralizing reamer. There was some granulation tissue and healing tissue within the acetabulum. This was debrided along with the ligamentum teres. The socket looked normal and the labrum was intact. The acetabulum was sized to a 49. Attention was turned back to the proximal femur. Soft tissue on the lateral aspect of the base of the neck was debrided. Broaching began at size 7 and proceeded up to size 13 with good fit fill and rotational stability. Calcar was planed and trialing was performed. The +3 gave good stability. The canal was plugged the canal was irrigated sprayed with thrombin and dried. 2 bags of Simplex P cement with 1 g of vancomycin in each bag for 2 total grams of vancomycin was mixed. When in a doughy state retrograde fill was performed along with pressurization. A centralizer was applied to the stem and it was inserted at approximately 20 to 30 degrees of femoral anteversion and held in place until the cemented hardened. Broaching was performed in the same fashion. Trialing was again performed and the +3 neck length gave good stability. Negative shuck test possibly slight lengthening of the leg based on measurements compared to the other leg. At 90 degrees of hip flexion the hip could be internally rotated 45 degrees in abduction in neutral position and about 30 degrees and adduction. The final bipolar components were inserted and the hip was reduced. Soft tissues were kept moist throughout the surgical procedure. Irrigation performed. The short external rotators and capsule were repaired back to the hip abductor mechanism and greater trochanter with #1 Ethibond through the bone where applicable. This was followed by repair of the gluteal fascia using interrupted #1 Vicryl's and a layered closure with 0 and 2-0 Vicryl's with demian on skin. Soft sterile dressing Xeroform 4 x 4's ABD foam tape. Awakened from anesthesia and returned to the supine position. The left leg was less than 1/2 cm longer than the right. Hip abduction pillow applied. Patient awakened from anesthesia taken to recovery in stable condition. The resected bone was sent for specimen. There were no complications. Counts were correct and blood loss is estimated to be 50 cc. Her cortex was thin. The components inserted were the [employer] echo fracture standard with collar size 11 stem with 140 mm length. A 49 shell and liner. A 28 mm +3 head and a size 12 distal centralizer local anesthetic was injected into the skin and subcutaneous tissues to conclusion of the procedure. I attest to the content of the Intraoperative Record and any orders documented therein. Any exceptions are noted below.
[2024-02-08] MEDS: fentaNYL citrate PF 100 MCG/2 ML VIAL IV PRN (16:36)
[2024-02-08] MEDS: fentaNYL citrate PF 100 MCG/2 ML VIAL ONE (16:44)
--- NOTE | 2024-02-08 16:55 | Anesthesiology Progress Note ---
Date of Service February 08, 2024 Anesthesia Post Procedure Vital Signs Vital Signs: Temp Pulse Pulse Resp BP BP Pulse Ox 02/08/24 16:45 84 18 132/74 100 02/08/24 16:35 90 18 101/76 100 02/08/24 16:28 36.5 C 103 H 20 143/95 H 97 02/08/24 10:00 02/08/24 10:00 36.5 C 50 L 14 123/63 93 02/08/24 08:20 02/08/24 06:54 36.4 C L 56 L 18 97/55 L 92 02/07/24 20:36 36.4 C L 66 16 114/64 94 02/07/24 19:50 Pulse Ox O2 Del Method O2 Del Method O2 Flow Rate 02/08/24 16:45 Oxymask 4 02/08/24 16:35 Oxymask 6 02/08/24 16:28 Oxymask 6 02/08/24 10:00 93 Room Air 02/08/24 10:00 Room Air 02/08/24 08:20 Room Air 02/08/24 06:54 Room Air 02/07/24 20:36 Room Air 02/07/24 19:50 Room Air Pain Intensity Left Hip: Pain Intensity: 6 Lower Back: Pain Intensity: 10 Left Leg: Pain Intensity: 7 Transfer of Care Handoff Completed per policy Notes Mental Status: alert / awake / arousable Patient Amnestic to Procedure: Yes Nausea / Vomiting: adequately controlled Pain: adequately controlled Airway Patency, RR, SpO2: stable & adequate BP & HR: stable & adequate Hydration State: stable & adequate Anesthetic Complications: no major complications apparent and Pt Satisfied with anesthetic care
[2024-02-08] MEDS ORDERED: METOCLOPRAMIDE HCL INJ 5 MG/ML 2 ML VIAL IV PRN (17:26)
[2024-02-08] MEDS ORDERED: COUGH DROP (SUGAR FREE) LOZ 24 LOZ/1 BOX BUCCAL PRN (17:26)
[2024-02-08] MEDS ORDERED: ALUMINUM/MAGNESIUM SUSP 30 ML UDC PO PRN (17:26)
[2024-02-08] MEDS ORDERED: bisacodyL 10 MG SUPP PR PRN (17:26)
[2024-02-08] MEDS ORDERED: NALOXONE HCL 0.4 MG/1 ML VIAL/CARP IV PRN (17:26)
[2024-02-08] MEDS: HYDROmorphone INJ 0.5 MG/0.5 ML SYR IV PRN (18:15)
--- NOTE | 2024-02-08 20:17 | XRay Report ---
XR hip LT min 2V CLINICAL HISTORY: Post-Operative implant position TECHNIQUE: 2 views of the left hip were obtained. Comparison: Comparison is made to femur radiograph 02/07/2024 FINDINGS: Patient is status post total hip arthroplasty with expected postsurgical changes including soft tissu e swelling and subcutaneous emphysema. IMPRESSION: Expected postoperative appearance status post placement of total hip arthroplasty. ACT 112: Negative or not required by law. Electronically signed by: Fercho Davis M.D. 02/08/2024 8:15 PM
[2024-02-08] MEDS: DOCUSATE SODIUM 100 MG CAP PO SCH (20:28)
[2024-02-08] MEDS: SENNA 8.6 MG TAB PO SCH (20:28)
[2024-02-08] MEDS: ceFAZolin 2000MG 2,000 MG/15 ML SYR IV SCH (22:24)
[2024-02-08] MEDS: TRANEXAMIC ACID / 0.7% NACL 1,000 MG/100 ML BAG IV SCH (22:24)
--- NOTE | 2024-02-09 06:04 | Electrocardiogram Report ---
Test Reason : Blood Pressure : / mmHG Vent. Rate : 061 BPM Atrial Rate : 061 BPM P-R Int : 174 ms QRS Dur : 084 ms QT Int : 448 ms P-R-T Axes : 080 074 068 degrees QTc Int : 450 ms Sinus rhythm Premature atrial complexes Otherwise normal ECG When compared with ECG of 18-MAY-2012 17:02, Vent. rate has decreased BY 34 BPM Questionable change in QRS axis Nonspecific T wave abnormality no longer evident in Inferior leads Nonspecific T wave abnormality no longer evident in Lateral leads Confirmed by Prosper Wright ([id number]) on 02/09/2024 6:04:14 AM Referred By: REFERRED SELF Confirmed By:Prosper Wright
[2024-02-09 07:36] LABS: Basophils # (auto) 0.01 K/uL (0.00-0.20); Basophils % (auto) 0.1 %; Hematocrit (blood only) 36.9 % (37.0-47.0); Immature Granulocytes # (auto) 0.02 K/uL (0.01-0.20); Immature Granulocytes % (auto) 0.3 %; Lymphocytes # (auto) 0.28 K/uL (1.20-3.40); Lymphocytes % (auto) 3.7 %; Mean Corpuscular Hemoglobin 31.2 pg (25.0-34.0); Mean Corpuscular Hgb Conc 32.5 g/dL (32.0-36.0); Mean Corpuscular Volume 95.8 fL (80.0-100.0); Mean Platelet Volume 10.3 fL (9.4-12.4); Monocytes # (auto) 0.69 K/uL (0.11-0.59); Monocytes % (auto) 9.1 %; Neutrophils # (auto) 6.57 K/uL (1.40-6.50); Neutrophils % (auto) 86.8 %; Platelet Count 168 K/uL (130-400); RDW Coefficient of Variation 12.2 % (11.5-14.5); RDW Standard Deviation 42.3 fL (36.4-46.3); Red Blood Count 3.85 M/uL (4.20-5.40); White Blood Count 7.57 K/ul (4.8-10.8)
[2024-02-09] MEDS: SODIUM CHLORIDE 0.9% 500 ML IV ONE (07:36)
[2024-02-09 08:02] LABS: Calcium 8.8 mg/dl (8.6-10.3); Creatinine Clr Calc Pharmacy 59.7 ml/min; Est GFR (African American) 96.7 ml/min; Est GFR (Non-African American) 83.4 ml/min; Potassium 4.5 mmol/L (3.5-5.1)
[2024-02-09] MEDS: SODIUM CHLORIDE 0.9% 1,000 ML IV SCH (08:08)
[2024-02-09] MEDS: APIXABAN 2.5 MG TAB PO SCH (08:33)
[2024-02-09] MEDS: traMADol HCL 50 MG TABLET PO PRN (08:35)
--- NOTE | 2024-02-09 09:39 | Orthopedic Progress Note ---
Date of Service February 09, 2024 Assessment & Plan (1) S/P hip hemiarthroplasty: Plan: Total hip precautions reviewed PT/OT Weightbearing as tolerated with walker assistance Abduction pillow use x 6 weeks Ice with easy wrap Pain control with p.o. medication DVT prophylaxis Case management evaluation for discharge planning. Patient may need to go to an in patient's rehab facility because she lives alone. Will continue to follow while in house. Will change her dressing tomorrow Follow-up at [facility] [address] orthopedics approximately 2 weeks upon discharge With questions contact our clinic at [phone] Admission and Anticipated Discharge Date Admission Date: February 07, 2024 Subjective This 68-year-old female is day 1 status post left hip hemiarthroplasty. Patient states she has a considerable amount of pain with any type of movement of the left lower extremity. She denies numbness or tingling in the left lower extremity. She states she is unable to lift it. Currently she denies chest pain, shortness of breath, fever, chills, sweats, nausea, vomiting, diarrhea but does have a low urine output and was recently started on an IV bolus by medicine service. Review of Systems Review of Systems: All systems reviewed & are unremarkable except as noted in Subjective Physical Exam Physical Exam: Left hip: Dressing was clean dry and intact and left in place. Patient experienced significant tenderness to palpation circumferentially around the dressing. She had pain with logroll testing. She was unable to perform active straight leg raise test but was able to actively dorsi and plantarflex her foot. She was able to detect light sensation to touch over the pads of all digits. Passive hip flexion was limited to about 55 degrees. She experienced pain with very light passive internal and external hip rotation. Results & Data Vital Signs (Past 12 Hours) Vital Signs Temp Pulse Resp BP Pulse Ox O2 Del Method O2 Flow Rate 02/09/24 08:58 93 Room Air 02/09/24 07:43 Nasal Cannula 2 02/09/24 07:19 36.4 C L 49 L 15 114/57 L 100 Nasal Cannula 2.0 02/09/24 04:11 36.4 C L 53 L 16 118/63 97 Room Air 02/09/24 00:00 36.6 C 57 L 18 111/58 L 98 Nasal Cannula 2 Diagnostic Findings Laboratory Results WBC 7.57 K/ul (4.8-10.8) 02/09/24 06:55 RBC 3.85 M/uL (4.20-5.40) L 02/09/24 06:55 Hgb 12.0 g/dl (12.0-16.0) 02/09/24 06:55 Hct 36.9 % (37.0-47.0) L 02/09/24 06:55 MCV 95.8 fL (80.0-100.0) 02/09/24 06:55 MCH 31.2 pg (25.0-34.0) 02/09/24 06:55 MCHC 32.5 g/dL (32.0-36.0) 02/09/24 06:55 RDW Std Deviation 42.3 fL (36.4-46.3) 02/09/24 06:55 RDW Coeff of Josie 12.2 % (11.5-14.5) 02/09/24 06:55 Plt Count 168 K/uL (130-400) 02/09/24 06:55 MPV 10.3 fL (9.4-12.4) 02/09/24 06:55 Immature Gran % (Auto) 0.3 % 02/09/24 06:55 Neut % (Auto) 86.8 % 02/09/24 06:55 Lymph % (Auto) 3.7 % 02/09/24 06:55 Coleman % (Auto) 9.1 % 02/09/24 06:55 Eos % (Auto) 0.0 % 02/09/24 06:55 Baso % (Auto) 0.1 % 02/09/24 06:55 Neut # (Auto) 6.57 K/uL (1.40-6.50) H 02/09/24 06:55 Lymph # (Auto) 0.28 K/uL (1.20-3.40) L 02/09/24 06:55 Coleman # (Auto) 0.69 K/uL (0.11-0.59) H 02/09/24 06:55 Eos # (Auto) 0.00 K/uL (0.00-0.50) 02/09/24 06:55 Baso # (Auto) 0.01 K/uL (0.00-0.20) 02/09/24 06:55 Immature Gran # (Auto) 0.02 K/uL (0.01-0.20) 02/09/24 06:55 Sodium 137 mmol/L (136-145) 02/09/24 06:55 Potassium 4.5 mmol/L (3.5-5.1) 02/09/24 06:55 Chloride 102 mmol/L (98-107) 02/09/24 06:55 Carbon Dioxide 31 mmol/L (21-32) 02/09/24 06:55 Anion Gap 4 (3-11) 02/09/24 06:55 BUN 27 mg/dl (6-23) H 02/09/24 06:55 Creatinine 0.73 mg/dl (0.6-1.2) 02/09/24 06:55 Est Cr Clr Drug Dosing 59.7 ml/min 02/09/24 06:55 Est GFR ( Amer) 96.7 ml/min 02/09/24 06:55 Est GFR (Non-Af Amer) 83.4 ml/min 02/09/24 06:55 BUN/Creatinine Ratio 37.0 (10-20) H 02/09/24 06:55 Glucose 130 mg/dl (70-99(Fasting)) H 02/09/24 06:55 Calcium 8.8 mg/dl (8.6-10.3) 02/09/24 06:55 Magnesium 1.9 mg/dl (1.7-2.4) 02/07/24 09:08 Total Bilirubin 0.6 mg/dl (0.2-1.0) 02/06/24 16:35 AST 19 U/L (13-39) 02/06/24 16:35 ALT 10 U/L (7-52) 02/06/24 16:35 Alkaline Phosphatase 96 U/L (34-104) 02/06/24 16:35 Total Protein 7.3 gm/dl (6.0-8.3) 02/06/24 16:35 Albumin 4.0 gm/dl (3.4-5.0) 02/06/24 16:35 Globulin 3.3 gm/dl (2.5-4.0) 02/06/24 16:35 Albumin/Globulin Ratio 1.2 (0.9-2) 02/06/24 16:35 25-OH Vitamin D Total 9.2 ng/ml (30-100) L 02/08/24 05:49 Urine Color Yellow 02/07/24 06:35 Urine Appearance Clear (Clear) 02/07/24 06:35 Urine pH 7.0 (4.5-7.5) 02/07/24 06:35 Ur Specific [place] 1.014 (1.000-1.030) 02/07/24 06:35 Urine Protein Negative (Negative) 02/07/24 06:35 Urine Glucose (UA) Negative (Negative) 02/07/24 06:35 Urine Ketones Trace (Negative) H 02/07/24 06:35 Urine Blood Negative (Negative) 02/07/24 06:35 Urine Nitrite Negative (Negative) 02/07/24 06:35 Urine Bilirubin Negative (Negative) 02/07/24 06:35 Urine Urobilinogen Negative (Negative) 02/07/24 06:35 Ur Leukocyte Esterase 3+ (Negative) H 02/07/24 06:35 Urine WBC (Auto) >50 /hpf (0-5) H 02/07/24 06:35 Urine RBC (Auto) 0-2 /hpf (0-2) 02/07/24 06:35 U Hyaline Cast (Auto) 0-2 /lpf (0-2) 02/07/24 06:35 U Epithel Cells (Auto) 0-2 /hpf (0-2) 02/07/24 06:35 Urine Bacteria (Auto) None Seen (None Seen) 02/07/24 06:35 Blood Type A Positive 02/07/24 19:05 Antibody Screen NEGATIVE 02/07/24 19:05 Impressions Lumbar Spine MRI 02/06/24 18:17 Exam(s): MRI L SPINE Without Contrast EXAM: MR Lumbar Spine Without Intravenous Contrast CLINICAL HISTORY: Reason for exam: lumbar compression fx, L leg weakness. TECHNIQUE: Magnetic resonance images of the lumbar spine without intravenous contrast in multiple planes. COMPARISON: None. FINDINGS: Vertebrae: Severe biconcave T12 compression deformity with retropulsion. Mild underlying edema is nonspecific, could reflect subacute fracture with ongoing healing. Avascular necrosis is also a consideration. No other compression deformity or marrow edema. No discitis or osteomyelitis. Conus: Terminates normally, no abnormal signal. Normal rootlets of the cauda equina, with possible mild, chronic arachnoiditis of the distal thecal sac. Soft tissues: No epidural hematoma or paraspinous mass. DISCS/SPINAL CANAL/NEURAL FORAMINA: T12-L1: T12 retropulsion with narrowing of the spinal canal, though CSF persists dorsal to the conus and there is no spinal stenosis. L1-L2: Unremarkable for age. L2-L3: Moderate degenerative disc disease. L3-L4: Moderate degenerative disc disease. L4-L5: Moderate degenerative disc disease. L5-S1: Unremarkable for age. OTHER: No isolated disc herniation. Moderate to severe facet hypertrophy. No significant central spinal stenosis. IMPRESSION: 1. Severe T12 compression deformity with mild edema, possible subacute fracture with ongoing healing. Avascular necrosis felt less likely, not excluded. 2. Possible, mild chronic arachnoiditis of the distal thecal sac. 3. Moderate degenerative disc disease, without disc herniation or central spinal stenosis. 4. No disc herniation, central spinal stenosis, marrow edema, acute fracture, discitis/osteomyelitis or abnormal signal in the conus. Electronically signed by: Alfreda Oh M.D. 02/06/24 21:51 PM Hip/Pelvis X-Ray 02/07/24 09:59 XR hip LT 2V w pelvis CLINICAL HISTORY: hip pain TECHNIQUE: 2 views of the right hip and single frontal view of the pelvis were obtained. Comparison: None available at the time of this dictation. FINDINGS: There is a fracture of the left femoral neck. Joint spaces are well-preserved. Soft tissue swelling is seen. IMPRESSION: Fracture of the left femoral neck with associated soft tissue swelling. ACT 112: Negative or not required by law. Electronically signed by: Fercho Davis M.D. 02/07/2024 11:48 AM Ankle X-Ray 02/07/24 18:59 XR foot LT min 3V routine, XR ankle LT min 3V routine, XR tibia fibula LT 2V CLINICAL HISTORY: pain TECHNIQUE: 3 views of the left foot and 3 views of the left ankle and 2 views of the left tibia and fibula were obtained. Comparison: None available at the time of this dictation. FINDINGS: No fractures are present. Degenerative changes are seen. Plantar enthesophytes are seen. No soft tissue abnormality is seen. IMPRESSION: Degenerative changes without evidence of acute fracture. ACT 112: Negative or not required by law. Electronically signed by: Fercho Davis M.D. 02/08/2024 8:11 AM Femur X-Ray 02/07/24 18:59 XR knee LT 3V, XR femur LT 2V routine CLINICAL HISTORY: pain TECHNIQUE: 2 views of the left knee and 2 views of the left femur were obtained. Comparison: None available at the time of this dictation. FINDINGS: There is an acute fracture of the left femoral neck. Overriding of the fragments is seen. Patient is status post total knee arthroplasty. No perihardware lucency or hardware fracture is seen. No joint effusion is seen. Soft tissue swelling is seen about the knee. IMPRESSION: Left femoral neck fracture with associated soft tissue swelling. ACT 112: Negative or not required by law. Electronically signed by: Fercho Davis M.D. 02/08/2024 8:12 AM Foot X-Ray 02/07/24 18:59 XR foot LT min 3V routine, XR ankle LT min 3V routine, XR tibia fibula LT 2V CLINICAL HISTORY: pain TECHNIQUE: 3 views of the left foot and 3 views of the left ankle and 2 views of the left tibia and fibula were obtained. Comparison: None available at the time of this dictation. FINDINGS: No fractures are present. Degenerative changes are seen. Plantar enthesophytes are seen. No soft tissue abnormality is seen. IMPRESSION: Degenerative changes without evidence of acute fracture. ACT 112: Negative or not required by law. Electronically signed by: Fercho Davis M.D. 02/08/2024 8:11 AM Knee X-Ray 02/07/24 18:59 XR knee LT 3V, XR femur LT 2V routine CLINICAL HISTORY: pain TECHNIQUE: 2 views of the left knee and 2 views of the left femur were obtained. Comparison: None available at the time of this dictation. FINDINGS: There is an acute fracture of the left femoral neck. Overriding of the fragments is seen. Patient is status post total knee arthroplasty. No perihardware lucency or hardware fracture is seen. No joint effusion is seen. Soft tissue swelling is seen about the knee. IMPRESSION: Left femoral neck fracture with associated soft tissue swelling. ACT 112: Negative or not required by law. Electronically signed by: Fercho Davis M.D. 02/08/2024 8:12 AM Tibia/Fibula X-Ray 02/07/24 18:59 XR foot LT min 3V routine, XR ankle LT min 3V routine, XR tibia fibula LT 2V CLINICAL HISTORY: pain TECHNIQUE: 3 views of the left foot and 3 views of the left ankle and 2 views of the left tibia and fibula were obtained. Comparison: None available at the time of this dictation. FINDINGS: No fractures are present. Degenerative changes are seen. Plantar enthesophytes are seen. No soft tissue abnormality is seen. IMPRESSION: Degenerative changes without evidence of acute fracture. ACT 112: Negative or not required by law. Electronically signed by: Fercho Davis M.D. 02/08/2024 8:11 AM Venous Doppler Study 02/07/24 18:59 Exam(s): US VENOUS LEFT LOWER EXTREMITY EXAM: US Duplex Left Lower Extremity Veins CLINICAL HISTORY: Hip fracture. TECHNIQUE: Real-time duplex ultrasound scan of the left lower extremity veins integrating B-mode two-dimensional vascular structure, Doppler spectral analysis, color flow Doppler imaging and compression. COMPARISON: No relevant prior studies available. FINDINGS: Deep veins: Unremarkable. No Deep vein thrombosis in the visualized common femoral, femoral, proximal deep femoral or popliteal veins. The veins demonstrate normal color flow, are normally compressible, with normal phasic flow and/or augmentation response. Superficial veins: Unremarkable. No thrombus in the visualized great saphenous vein. Soft tissues: Nonspecific subcutaneous edema. No popliteal cyst. IMPRESSION: 1. Nonspecific subcutaneous edema. 2. No deep vein thrombosis of the left lower extremity. Electronically signed by: Ashlie Guerrero MD 02/08/24 01:21 AM Chest X-Ray 02/07/24 19:04 XR chest 1V portable CLINICAL HISTORY: hip fracture TECHNIQUE: Single frontal radiograph of the chest was obtained. Comparison: Comparison is made to chest radiograph 05/18/2012 FINDINGS: No lines and tubes are seen. Calcified aortic knob is seen. Left humeral fixation hardware is seen. Reticular interstitial opacities are seen. No evidence of pleural effusion or pneumothorax. IMPRESSION: No acute chest disease. ACT 112: Negative or not required by law. Electronically signed by: Fercho Davis M.D. 02/08/2024 8:09 AM Hip X-Ray 02/08/24 17:26 XR hip LT min 2V CLINICAL HISTORY: Post-Operative implant position TECHNIQUE: 2 views of the left hip were obtained. Comparison: Comparison is made to femur radiograph 02/07/2024 FINDINGS: Patient is status post total hip arthroplasty with expected postsurgical changes including soft tissue swelling and subcutaneous emphysema. IMPRESSION: Expected postoperative appearance status post placement of total hip arthroplasty. ACT 112: Negative or not required by law. Electronically signed by: Fercho Davis M.D. 02/08/2024 8:15 PM
--- NOTE | 2024-02-09 23:00 | Hospitalist Progress Note ---
Date of Service February 09, 2024 Assessment & Plan (1) Fracture of femoral neck, left: Plan: Due to decreased strength and increased pain in left lower extremity, x-ray of hip/pelvis was obtained 02/07/24. Revealed left femoral neck fracture with associated soft tissue swelling. Consulted ortho surgery > X-rays of left foot, ankle tibia/fibula, knee unremarkable. Venous doppler of LLE negative for DVT. CXR negative. > L hip hemiarthroplasty with Dr. Barclay on 02/08/24. > Blood typed and screened. Remains hemodynamically stable at this time. Patient had low urine output so IVF bolus with maintenance fluids were ordered 02/08. > Discontinue IVF when appropriate. Monitor for fluid overload. Pain regimen with Tylenol, Morphine 2mg q4h pain 4-6, 4mg pain 7-10, Decadron 4 mg BID, Lidocaine patch and Miacalcin nasal spray daily. 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 She then traveled to [facility] with family and was seen in [facility] ED where she was diagnosed with a T12 compression fracture. Has had worsening pain, increased weakness, and difficulty ambulating at home recently. MRI lumbar spine on admission showed severe T12 compression deformity with mild edema, retropulsion into the canal without cord compression. Possible, mild chronic arachnoiditis of the distal thecal sac. Ortho spine consulted Vitamin D level low at 9.2 on 02/08/24. > Continue Vit D3 supplementation at 1250 mcg PO weekly x 8 weeks. Then continue with 20 mcg daily. Recommend repeat Vit D level in 3-4 months. (3) UTI (urinary tract infection): Plan: UA on admission was positive for leukocyte Estrace and WBCs Per nursing, urine was foul-smelling Urine culture negative. Ceftriaxone discontinued 02/08. Plan Decreased steroid dosing Discontinued antibiotic Ordered IVF due to low urine output CHRONIC STABLE CONDITIONS Insomnia - continue trazodone, mirtazapine GERD - continue pantoprazole Depression/anxiety - continue clonazepam COPD - continue home inhalers CODE STATUS: Full code VTE prophylaxis: SCD, defer pharmacologic pending ortho/spine eval Admission and Anticipated Discharge Date Admission Date: February 07, 2024 Subjective Patient seen and evaluated at bedside. She was resting comfortably in bed upon my entry to the room. When asked about her pain, she reported 10/10 pain and that she "counts down the minutes until more morphine." She notes that she is unable to lift her leg and that she has significant pain with any movement of her LLE. She denies numbness, tingling, or throbbing pain in her left leg. Denies fever, chills, shortness of breath, chest pain, nausea, vomiting, diarrhea, abdominal pain, lightheadedness, or dizziness. Physical Exam Physical Exam: General: No acute distress, nondiaphoretic, well-developed, well-nourished. Skin: The skin was without rashes, erythema, edema, or bruising. Kunz catheter in place. Cardiac: Regular rate and rhythm without murmurs gallops or rubs. Pulm: Clear to auscultation bilaterally without wheezes, rales or rhonchi. No respiratory distress. Abdominal: Soft, nondistended, nontender. Bowel sounds present. Neuro: A&O x3. No focal neurological deficits. Extremities: Postop dressing intact, clean, dry. Restricted range of motion of left lower extremity due to severe pain. Weakness with left plantarflexion and dorsiflexion. Sensation intact in left leg. Pedal pulses present in left leg. Results & Data Results & Data Vital Signs (Past 12 Hours) Vital Signs Temp Pulse Resp BP Pulse Ox O2 Del Method 02/09/24 19:24 36.5 C 58 L 16 102/57 L 94 Room Air 02/09/24 15:06 36.6 C 57 L 16 112/66 93 Room Air 02/09/24 11:22 36.6 C 58 L 18 148/78 H 92 Room Air Laboratory Results Reviewed CBC Reviewed BMP PG Care Time/CCT Total # of Minutes Spent Total Time Spent with Patient: Total time spent is greater than 50% in coordination of care (as documented) at patient's floor/unit and/or counseling patient: Coding Level of Care Code 80570 SUB INP/OBS CARE 3/50MIN Diagnoses Fracture of femoral neck, left S72.002A Compression fracture of body of thoracic vertebra S22.000A UTI (urinary tract infection) N39.0
[2024-02-10 08:08] LABS: Hematocrit (blood only) 33.9 % (37.0-47.0); Mean Corpuscular Hemoglobin 31.3 pg (25.0-34.0); Mean Corpuscular Hgb Conc 32.4 g/dL (32.0-36.0); Mean Corpuscular Volume 96.3 fL (80.0-100.0); Mean Platelet Volume 10.5 fL (9.4-12.4); Platelet Count 132 K/uL (130-400); RDW Coefficient of Variation 12.5 % (11.5-14.5); RDW Standard Deviation 43.2 fL (36.4-46.3); Red Blood Count 3.52 M/uL (4.20-5.40); White Blood Count 5.81 K/ul (4.8-10.8)
[2024-02-10] MEDS: dexAMETHasone 4 MG in SYRINGE 0 ML IV SCH (08:26)
[2024-02-10] MEDS: ONDANSETRON INJ 2 MG/ML 2 ML VIAL IV PRN (08:29)
[2024-02-10 08:33] LABS: BUN Creatinine Ratio 38.6 (10-20); Creatinine Clr Calc Pharmacy 99.1 ml/min; Est GFR (African American) 118.5 ml/min; Est GFR (Non-African American) 102.3 ml/min; Potassium 4.1 mmol/L (3.5-5.1)
--- NOTE | 2024-02-10 09:14 | Hospitalist Progress Note ---
Date of Service February 10, 2024 Assessment & Plan (1) Fracture of femoral neck, left: Plan: Due to decreased strength and increased pain in left lower extremity, x-ray of hip/pelvis was obtained 02/07/24. Revealed left femoral neck fracture with associated soft tissue swelling. Consulted ortho surgery > X-rays of left foot, ankle tibia/fibula, knee unremarkable. Venous doppler of LLE negative for DVT. CXR negative. > L hip hemiarthroplasty with Dr. Barclay on 02/08/24. > Blood typed and screened. Remains hemodynamically stable at this time. Patient had low urine output so IVF bolus with maintenance fluids were ordered 02/08. > Discontinue IVF when appropriate. Monitor for fluid overload. Pain regimen with Tylenol, Morphine 2mg q4h pain 4-6, 4mg pain 7-10, Decadron 4 mg BID, Lidocaine patch and Miacalcin nasal spray daily. 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 --> Continue Vit D3 supplementation at 1250 mcg PO weekly x 8 weeks. Then continue with 20 mcg daily. Recommend repeat Vit D level in 3-4 months. PT/OT consulted, weight bearing as tolerated Patient will need rehab on discharge prior to returning home 02/09 WBC wnl, afebrile Hgb 12--> 11.0, had been on NS @ 80cc/hr for low UOP which has improved significantly and will discontinue Pain control: tylenol, lidocaine patch, Decadron as below. Miacalcin nasal spray Schulte to be removed today Bowel regimen continued, RN to administer suppository if no BM this afternoon as has been several days. Does have +BS on exam and passing gas Had been getting dexamethasone 4mg q8h for compression fracture/pain control, decreased to 4mg BID for today and will plan to decrease to 2mg BID for tomorrow and taper off PT/OT recs rehab, -->CM to apply for auth and potential dc to [facility] 02/10 pending status/pa in control DVT proph: eliquis 2.5mg PO BID per Dr Barclay, started 7/8 AM (2) Compression fracture of body of thoracic vertebra: Plan: Patient experienced a ground-level fall at home on 01/17/2024. She then traveled to [facility] with family and was seen in [facility] ED where she was diagnosed with a T12 compression fracture. Had worsening pain, increased weakness, and difficulty ambulating at home recently. MRI lumbar spine on admission showed severe T12 compression deformity with mild edema, retropulsion into the canal without cord compression. Possible, mild chronic arachnoiditis of the distal thecal sac. Ortho spine consulted, Dr Morton - obtained imaging of the LEFT hip as above and patient s/p hemiarthroplasty Decadron 4mg q8h ordered on admission, decreased to 4mg BID for today and planned to decrease to 2mg PO BID in AM 02/10 and can continue to taper at [place] (3) UTI (urinary tract infection): Plan: UA on admission was positive for leukocyte Estrace and WBCs, per nursing was foul smelling. ?dehydration. IVF as above. Had been placed on Ceftriaxone IV however urine cx negative (mixed shyanne) and Ceftriaxone was discontinued 02/08 Schulte to be removed as above, monitor for any issues Plan CHRONIC STABLE CONDITIONS Insomnia - continue trazodone, mirtazapine GERD - continue pantoprazole Depression/anxiety - continue clonazepam COPD - continue home inhalers Cm to apply for auth, possible [facility] in AM if schulte removed/bowels moving and pain control stable Admission and Anticipated Discharge Date Admission Date: February 07, 2024 Supervising Physician Co-Signing Physician Notes The patient was not seen by me. The chart was reviewed. Case discussed with TALIA Heredia. Agree with assessment and plan Subjective Evaluated this morning, sitting up in bed, little painful today. Reports was getting patch to her hip, on bedside table and discussed will have nursing apply. Discussed decreasing her steroids, back pain controlled at present. She does have increased discomfort from her jeremiah hose on the left leg, will ask nursing to call for larger size as does appear to be cutting into her leg. CM applying for auth, possible [facility] in next 24-48hrs discussed. Schulte to be removed, patient reports she would like this out. Can use purewick following as needed. Passing gas but no bowel movement, reports she hasn't been eating much. RN asked to provide suppository this afternoon if no bowel movement. Questions/concerns addressed at this time. Physical Exam Physical Exam: General: 68yo female sitting up in bed, NAD but reporting pain to her left leg/tight compression stockings Head atraumatic, normocephalic, slightly dry mm, trachea midline Resp: even/unlabored, slightly diminished in the bases, no w/c/r, on room air CV: RRR, no significant mrg, edema to L hip around incision but no increased LE edema, jeremiah hose/SCDs in place, abductor pillow in place GI:+BS throughout, slightly distension but soft/nontender : schulte draining yellow urine MSK/Neuro: dressing to LEFT hip c/d/i, slight edema but no signficiant warmth/drainage, appropriately tender NVI, pulses present, toes mobile Improvement in ROM w/ back w/ steroids Psych: AOx3, cooperative with exam Results & Data Results & Data Vital Signs (Past 12 Hours) Vital Signs Temp Pulse Resp BP Pulse Ox O2 Del Method 02/10/24 07:25 36.4 C L 51 L 16 110/59 L 93 Room Air Laboratory Results 02/10/24 Range/Units 07:18 WBC 5.81 (4.8-10.8) K/ul RBC 3.52 L (4.20-5.40) M/uL Hgb 11.0 L (12.0-16.0) g/dl Hct 33.9 L (37.0-47.0) % MCV 96.3 (80.0-100.0) fL MCH 31.3 (25.0-34.0) pg MCHC 32.4 (32.0-36.0) g/dL RDW Std Deviation 43.2 (36.4-46.3) fL RDW Coeff of Josie 12.5 (11.5-14.5) % Plt Count 132 (130-400) K/uL MPV 10.5 (9.4-12.4) fL Sodium 140 (136-145) mmol/L Potassium 4.1 (3.5-5.1) mmol/L Chloride 107 (98-107) mmol/L Carbon Dioxide 30 (21-32) mmol/L Anion Gap 3 (3-11) BUN 17 (6-23) mg/dl Creatinine 0.44 L (0.6-1.2) mg/dl Est Cr Clr Drug Dosing 99.1 ml/min Est GFR ( Amer) 118.5 ml/min Est GFR (Non-Af Amer) 102.3 ml/min BUN/Creatinine Ratio 38.6 H (10-20) Glucose 82 (70-99(Fasting)) mg/dl Calcium 8.0 L (8.6-10.3) mg/dl PG Care Time/CCT Total # of Minutes Spent Total Time Spent with Patient: Total time spent is greater than 50% in coordination of care (as documented) at patient's floor/unit and/or counseling patient: Coding Level of Care Code 47755 SUB INP/OBS CARE 3/50MIN Diagnoses Fracture of femoral neck, left S72.002A Compression fracture of body of thoracic vertebra S22.000A UTI (urinary tract infection) N39.0
[2024-02-10] MEDS: oxyCODONE HCL IR 5 MG TAB (IMMEDIATE RELEASE) PO PRN (12:18)
[2024-02-10] MEDS: MAGNESIUM HYDROXIDE SUSP 30 ML UDC PO PRN (16:01)
[2024-02-10] MEDS: POLYETHYLENE (MIRALAX) 17 GM PACK PO SCH (16:33)
--- NOTE | 2024-02-10 16:33 | Orthopedic Progress Note ---
Date of Service February 10, 2024 Assessment & Plan (1) S/P hip hemiarthroplasty: Plan: Postop day 2-status post hemiarthroplasty left hip Total hip precautions reviewed PT/OT Weightbearing as tolerated with walker assistance Abduction pillow use x 6 weeks Ice with easy wrap Pain control with p.o. medication DVT prophylaxisWith Eliquis 2.5 mg p.o. twice daily for 2 to 4 weeks postoperatively. Case management evaluation for discharge planning. [facility] Dr. Barclay present for today's visit. Reinforce dressing on left hip as needed. Redress as needed. Will reeval in AM but stable from orthopedic standpoint for discharge to [facility] when medically stable. Follow-up in approximately 2 weeks as scheduled with [facility] orthopedics. Admission and Anticipated Discharge Date Admission Date: February 07, 2024 Subjective Patient sitting up in chair. Complaining of pain 10 out of 10. Complains of pain constantly from her left hip. She states she has been sitting in the chair for the last hour and a half. She did not participate in physical therapy today. She seems frustrated that people "want her to move around". She states that she is going to [facility] tomorrow at 1 PM. She is asking if she could be on something more long-acting such as OxyContin. Physical Exam Musculoskeletal: Exam of her left lower extremity: Hip incision is clean, dry and intact. Dressings were removed and new dressings were applied. The incision was cleansed with sterile saline. No underlying seroma or hematoma. Mild tenderness with palpation. No edema the left hip, thigh or lower leg. Strength of her left ankle is 5/5. No calf tenderness with palpation. Distal pulses are 1+. Sensation is normal throughout the left foot. She has full active range of motion of the left ankle but does reproduce pain in her left hip. Results & Data Vital Signs (Past 12 Hours) Vital Signs Temp Pulse Resp BP Pulse Ox O2 Del Method 02/10/24 08:00 Room Air 02/10/24 07:25 36.4 C L 51 L 16 110/59 L 93 Room Air Laboratory Results 02/10/24 Range/Units 07:18 WBC 5.81 (4.8-10.8) K/ul RBC 3.52 L (4.20-5.40) M/uL Hgb 11.0 L (12.0-16.0) g/dl Hct 33.9 L (37.0-47.0) % MCV 96.3 (80.0-100.0) fL MCH 31.3 (25.0-34.0) pg MCHC 32.4 (32.0-36.0) g/dL RDW Std Deviation 43.2 (36.4-46.3) fL RDW Coeff of Josie 12.5 (11.5-14.5) % Plt Count 132 (130-400) K/uL MPV 10.5 (9.4-12.4) fL Sodium 140 (136-145) mmol/L Potassium 4.1 (3.5-5.1) mmol/L Chloride 107 (98-107) mmol/L Carbon Dioxide 30 (21-32) mmol/L Anion Gap 3 (3-11) BUN 17 (6-23) mg/dl Creatinine 0.44 L (0.6-1.2) mg/dl Est Cr Clr Drug Dosing 99.1 ml/min Est GFR ( Amer) 118.5 ml/min Est GFR (Non-Af Amer) 102.3 ml/min BUN/Creatinine Ratio 38.6 H (10-20) Glucose 82 (70-99(Fasting)) mg/dl Calcium 8.0 L (8.6-10.3) mg/dl
[2024-02-10] MEDS: bisacodyL 5 MG TABEC PO ONE (18:24)
[2024-02-11 06:29] LABS: Hematocrit (blood only) 35.3 % (37.0-47.0); Hemoglobin 11.6 g/dl (12.0-16.0); Mean Corpuscular Hemoglobin 31.5 pg (25.0-34.0); Mean Corpuscular Hgb Conc 32.9 g/dL (32.0-36.0); Mean Corpuscular Volume 95.9 fL (80.0-100.0); Mean Platelet Volume 10.7 fL (9.4-12.4); Platelet Count 131 K/uL (130-400); RDW Coefficient of Variation 12.5 % (11.5-14.5); RDW Standard Deviation 43.2 fL (36.4-46.3); Red Blood Count 3.68 M/uL (4.20-5.40)
[2024-02-11 06:50] LABS: BUN Creatinine Ratio 41.3 (10-20); Calcium 8.3 mg/dl (8.6-10.3); Creatinine Clr Calc Pharmacy 94.8 ml/min; Est GFR (African American) 116.8 ml/min; Est GFR (Non-African American) 100.8 ml/min; Magnesium 2.1 mg/dl (1.7-2.4); Potassium 4.7 mmol/L (3.5-5.1)
--- NOTE | 2024-02-11 08:36 | Hospitalist Progress Note ---
Date of Service February 11, 2024 Assessment & Plan (1) Fracture of femoral neck, left: Plan: Due to decreased strength and increased pain in left lower extremity, x-ray of hip/pelvis was obtained 02/07/24. Revealed left femoral neck fracture with associated soft tissue swelling. Consulted ortho surgery > X-rays of left foot, ankle tibia/fibula, knee unremarkable. Venous doppler of LLE negative for DVT. CXR negative. > L hip hemiarthroplasty with Dr. Barclay on 02/08/24. > Blood typed and screened. Remains hemodynamically stable at this time. Patient had low urine output so IVF bolus with maintenance fluids were ordered 02/08. > Discontinue IVF when appropriate. Monitor for fluid overload. Pain regimen with Tylenol, Morphine 2mg q4h pain 4-6, 4mg pain 7-10, Decadron 4 mg BID, Lidocaine patch and Miacalcin nasal spray daily. 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 --> Continue Vit D3 supplementation at 1250 mcg PO weekly x 8 weeks. Then continue with 20 mcg daily. Recommend repeat Vit D level in 3-4 months. PT/OT consulted, weight bearing as tolerated Patient will need rehab on discharge prior to returning home 02/09 WBC wnl, afebrile Hgb 12--> 11.0, had been on NS @ 80cc/hr for low UOP which has improved significantly and will discontinue Pain control: tylenol, lidocaine patch, Decadron as below. Miacalcin nasal spray Schulte to be removed today Bowel regimen continued, RN to administer suppository if no BM this afternoon as has been several days. Does have +BS on exam and passing gas Had been getting dexamethasone 4mg q8h for compression fracture/pain control, decreased to 4mg BID for today and will plan to decrease to 2mg BID for tomorrow and taper off PT/OT recs rehab, -->CM to apply for auth and potential dc to [facility] 02/10 pending status/p ain control DVT proph: eliquis 2.5mg PO BID per Dr Barclay, started 7/8 AM, 2-4wks (will send 4 wks, could consider shortening in f/u if ambulatory/no issues) 02/10 -WBC wnl, afebrile. Hgb stable on repeat. Schulte removed, stockings exchanged. Continue bowel regimen at ct (patient wanted to avoid supposoitory but if not moving in next 24hr would highly recommend) (2) Compression fracture of body of thoracic vertebra: Plan: Patient experienced a ground-level fall at home on 01/17/2024. She then traveled to [facility] with family and was seen in [facility] ED where she was diagnosed with a T12 compression fracture. Had worsening pain, increased weakness, and difficulty ambulating at home recently. MRI lumbar spine on admission showed severe T12 compression deformity with mild edema, retropulsion into the canal without cord compression. Possible, mild chronic arachnoiditis of the distal thecal sac. Ortho spine consulted, Dr Morton - obtained imaging of the LEFT hip as above and patient s/p hemiarthroplasty Decadron 4mg q8h ordered on admission, decreased to 4mg BID for today and planned to decrease to 2mg PO BID in AM 02/10 and can continue to taper at ct (3) UTI (urinary tract infection): Plan: UA on admission was positive for leukocyte Estrace and WBCs, per nursing was foul smelling. ?dehydration. IVF as above. Had been placed on Ceftriaxone IV however urine cx negative (mixed shyanne) and Ceftriaxone was discontinued 02/08 Schulte to be removed as above, monitor for any issues Plan CHRONIC STABLE CONDITIONS Insomnia - continue trazodone, mirtazapine GERD - continue pantoprazole Depression/anxiety - continue clonazepam COPD - continue home inhalers Cm to apply for auth, possible [facility] in AM if schulte removed/bowels moving and pain control stable Admission and Anticipated Discharge Date Admission Date: February 07, 2024 Results & Data Results & Data Vital Signs (Past 12 Hours) Vital Signs Temp Pulse Resp BP Pulse Ox O2 Del Method 02/11/24 06:32 36.7 C 50 L 16 147/79 H 94 Room Air 02/10/24 23:50 Room Air 02/10/24 20:54 Room Air PG Care Time/CCT Total # of Minutes Spent Total Time Spent with Patient: Total time spent is greater than 50% in coordination of care (as documented) at patient's floor/unit and/or counseling patient: Coding Diagnoses Fracture of femoral neck, left S72.002A Compression fracture of body of thoracic vertebra S22.000A UTI (urinary tract infection) N39.0
--- NOTE | 2024-02-11 08:44 | Discharge Summary ---
Date of Service February 11, 2024 Admission HPI Per Admitting Provider 68 year old female with a past medical history of anxiety, depression, COPD, tobacco use, osteoporosis presenting with increased back pain and left LE weakness. Had a fall on 01/17/24. Went to get out of bed and tripped over her comforter. Next day drove to [facility] with her family. Was having continued back pain and was seen in [facility] ED where she was diagnosed with a T12 compression fracture. Since then has had worsening low back pain and weakness in left leg. Denies bowel/bladder incontinence, saddle anesthesia. Lives alone in a 2 story building, bathroom in on the second floor. Daughter lives locally. Has been having trouble getting around the house/up the stairs. ED Course: MRI lumbar spine with Severe T12 compression deformity with mild edema, possible subacute fracture with ongoing healing. Avascular necrosis felt less likely, not excluded. Possible, mild chronic arachnoiditis of the distal thecal sac. Admission Exam Per Admitting Provider Constitutional: well-appearing, no acute distress HEENT: NCAT, no conjunctival injection CV: regular rhythm, no murmur appreciated, extremities well-perfused, no LE edema Resp: CTABL, no wheezes/rales/rhonchi appreciated, no increased work of breathing GI: soft, nondistended, nontender MSK: strength 5/5 right LE, decreased strength left LE 3/5 Skin: warm, dry, no rash appreciated Neuro: alert, oriented, no focal neurologic deficit appreciated, sensations intact LE B/L Principal Diagnosis Left Femoral Neck Fracture, Thoracic Compression Fracture Discharge Exam General: 68yo female sitting up in bed, NAD eating breakfast, ongoing pain to hip/needing medication Head atraumatic, normocephalic, mm, trachea midline Resp: even/unlabored, slightly diminished in the bases, no w/c/r, on room air 94% CV: RRR, no significant mrg, edema to L hip around incision but no increased LE edema, maximus hose/SCDs in place, abductor pillow in place GI:+BS throughout, slightly distension but soft/nontender : schulte draining yellow urine MSK/Neuro: dressing to LEFT hip c/d/i, demian in place, slight edema but no significant warmth/drainage, appropriately tender NVI, pulses present, toes mobile Improvement in ROM w/ back w/ steroids Psych: AOx3, cooperative with exam Discharge Data Allergies Allergy/AdvReac Type Severity Reaction Status Date / Time NSAIDS (Non-Steroidal Allergy Unknown NOT TO Verified 02/06/24 20:46 Anti-Inflamma TAKE PER MD DUE TO RENAL ARTERY BYPASS Consultations 02/06/24 23:39 ED Decision to Admit Stat 02/07/24 00:25 Consult Orthopedic Spine Surgery Routine 02/07/24 15:39 Consult Orthopedic Surgery Routine Procedures Performed Operation Date: 02/08/24 12:00 Actual Procedures p Left Bipolar Hip Prosthesis-Cemented(Left) - Cosmo Barclay MD Ordered Studies Lumbar Spine MRI 02/06/24 18:17 Exam(s): MRI L SPINE Without Contrast EXAM: MR Lumbar Spine Without Intravenous Contrast CLINICAL HISTORY: Reason for exam: lumbar compression fx, L leg weakness. TECHNIQUE: Magnetic resonance images of the lumbar spine without intravenous contrast in multiple planes. COMPARISON: None. FINDINGS: Vertebrae: Severe biconcave T12 compression deformity with retropulsion. Mild underlying edema is nonspecific, could reflect subacute fracture with ongoing healing. Avascular necrosis is also a consideration. No other compression deformity or marrow edema. No discitis or osteomyelitis. Conus: Terminates normally, no abnormal signal. Normal rootlets of the cauda equina, with possible mild, chronic arachnoiditis of the distal thecal sac. Soft tissues: No epidural hematoma or paraspinous mass. DISCS/SPINAL CANAL/NEURAL FORAMINA: T12-L1: T12 retropulsion with narrowing of the spinal canal, though CSF persists dorsal to the conus and there is no spinal stenosis. L1-L2: Unremarkable for age. L2-L3: Moderate degenerative disc disease. L3-L4: Moderate degenerative disc disease. L4-L5: Moderate degenerative disc disease. L5-S1: Unremarkable for age. OTHER: No isolated disc herniation. Moderate to severe facet hypertrophy. No significant central spinal stenosis. IMPRESSION: 1. Severe T12 compression deformity with mild edema, possible subacute fracture with ongoing healing. Avascular necrosis felt less likely, not excluded. 2. Possible, mild chronic arachnoiditis of the distal thecal sac. 3. Moderate degenerative disc disease, without disc herniation or central spinal stenosis. 4. No disc herniation, central spinal stenosis, marrow edema, acute fracture, discitis/osteomyelitis or abnormal signal in the conus. Electronically signed by: Alfreda Oh M.D. 02/06/24 21:51 PM Hip/Pelvis X-Ray 02/07/24 09:59 XR hip LT 2V w pelvis CLINICAL HISTORY: hip pain TECHNIQUE: 2 views of the right hip and single frontal view of the pelvis were obtained. Comparison: None available at the time of this dictation. FINDINGS: There is a fracture of the left femoral neck. Joint spaces are well-preserved. Soft tissue swelling is seen. IMPRESSION: Fracture of the left femoral neck with associated soft tissue swelling. ACT 112: Negative or not required by law. Electronically signed by: Fercho Davis M.D. 02/07/2024 11:48 AM Ankle X-Ray 02/07/24 18:59 XR foot LT min 3V routine, XR ankle LT min 3V routine, XR tibia fibula LT 2V CLINICAL HISTORY: pain TECHNIQUE: 3 views of the left foot and 3 views of the left ankle and 2 views of the left tibia and fibula were obtained. Comparison: None available at the time of this dictation. FINDINGS: No fractures are present. Degenerative changes are seen. Plantar enthesophytes are seen. No soft tissue abnormality is seen. IMPRESSION: Degenerative changes without evidence of acute fracture. ACT 112: Negative or not required by law. Electronically signed by: Fercho Davis M.D. 02/08/2024 8:11 AM Femur X-Ray 02/07/24 18:59 XR knee LT 3V, XR femur LT 2V routine CLINICAL HISTORY: pain TECHNIQUE: 2 views of the left knee and 2 views of the left femur were obtained. Comparison: None available at the time of this dictation. FINDINGS: There is an acute fracture of the left femoral neck. Overriding of the fragments is seen. Patient is status post total knee arthroplasty. No perihardware lucency or hardware fracture is seen. No joint effusion is seen. Soft tissue swelling is seen about the knee. IMPRESSION: Left femoral neck fracture with associated soft tissue swelling. ACT 112: Negative or not required by law. Electronically signed by: Fercho Davis M.D. 02/08/2024 8:12 AM Foot X-Ray 02/07/24 18:59 XR foot LT min 3V routine, XR ankle LT min 3V routine, XR tibia fibula LT 2V CLINICAL HISTORY: pain TECHNIQUE: 3 views of the left foot and 3 views of the left ankle and 2 views of the left tibia and fibula were obtained. Comparison: None available at the time of this dictation. FINDINGS: No fractures are present. Degenerative changes are seen. Plantar enthesophytes are seen. No soft tissue abnormality is seen. IMPRESSION: Degenerative changes without evidence of acute fracture. ACT 112: Negative or not required by law. Electronically signed by: Fercho Davis M.D. 02/08/2024 8:11 AM Knee X-Ray 02/07/24 18:59 XR knee LT 3V, XR femur LT 2V routine CLINICAL HISTORY: pain TECHNIQUE: 2 views of the left knee and 2 views of the left femur were obtained. Comparison: None available at the time of this dictation. FINDINGS: There is an acute fracture of the left femoral neck. Overriding of the fragments is seen. Patient is status post total knee arthroplasty. No perihardware lucency or hardware fracture is seen. No joint effusion is seen. Soft tissue swelling is seen about the knee. IMPRESSION: Left femoral neck fracture with associated soft tissue swelling. ACT 112: Negative or not required by law. Electronically signed by: Fercho Davis M.D. 02/08/2024 8:12 AM Tibia/Fibula X-Ray 02/07/24 18:59 XR foot LT min 3V routine, XR ankle LT min 3V routine, XR tibia fibula LT 2V CLINICAL HISTORY: pain TECHNIQUE: 3 views of the left foot and 3 views of the left ankle and 2 views of the left tibia and fibula were obtained. Comparison: None available at the time of this dictation. FINDINGS: No fractures are present. Degenerative changes are seen. Plantar enthesophytes are seen. No soft tissue abnormality is seen. IMPRESSION: Degenerative changes without evidence of acute fracture. ACT 112: Negative or not required by law. Electronically signed by: Fercho Davis M.D. 02/08/2024 8:11 AM Venous Doppler Study 02/07/24 18:59 Exam(s): US VENOUS LEFT LOWER EXTREMITY EXAM: US Duplex Left Lower Extremity Veins CLINICAL HISTORY: Hip fracture. TECHNIQUE: Real-time duplex ultrasound scan of the left lower extremity veins integrating B-mode two-dimensional vascular structure, Doppler spectral analysis, color flow Doppler imaging and compression. COMPARISON: No relevant prior studies available. FINDINGS: Deep veins: Unremarkable. No Deep vein thrombosis in the visualized common femoral, femoral, proximal deep femoral or popliteal veins. The veins demonstrate normal color flow, are normally compressible, with normal phasic flow and/or augmentation response. Superficial veins: Unremarkable. No thrombus in the visualized great saphenous vein. Soft tissues: Nonspecific subcutaneous edema. No popliteal cyst. IMPRESSION: 1. Nonspecific subcutaneous edema. 2. No deep vein thrombosis of the left lower extremity. Electronically signed by: Ashlie Guerrero MD 02/08/24 01:21 AM Chest X-Ray 02/07/24 19:04 XR chest 1V portable CLINICAL HISTORY: hip fracture TECHNIQUE: Single frontal radiograph of the chest was obtained. Comparison: Comparison is made to chest radiograph 05/18/2012 FINDINGS: No lines and tubes are seen. Calcified aortic knob is seen. Left humeral fixation hardware is seen. Reticular interstitial opacities are seen. No evidence of pleural effusion or pneumothorax. IMPRESSION: No acute chest disease. ACT 112: Negative or not required by law. Electronically signed by: Fercho Davis M.D. 02/08/2024 8:09 AM Hip X-Ray 02/08/24 17:26 XR hip LT min 2V CLINICAL HISTORY: Post-Operative implant position TECHNIQUE: 2 views of the left hip were obtained. Comparison: Comparison is made to femur radiograph 02/07/2024 FINDINGS: Patient is status post total hip arthroplasty with expected postsurgical changes including soft tissue swelling and subcutaneous emphysema. IMPRESSION: Expected postoperative appearance status post placement of total hip arthroplasty. ACT 112: Negative or not required by law. Electronically signed by: Fercho Davis M.D. 02/08/2024 8:15 PM Hospital Course (1) Fracture of femoral neck, left: 68 presented to the ER after initially having ground level fall at home 01/16 and then traveled to [facility] with family and was seen in ER and diagnosed with T12 compression fracture however had ongoing worsenig pain, increased weakness and difficulty ambulating at home Initially had obtained MRI lumbar spine which showed severe T12 compression deformity with mild edema, retropulsion into the canal without cord compression. Possible, mild chronic arachnoiditis of the distal thecal sac. Dr Morton consulted, placed on IV decadron however on exam concerns for underlying problem with her hip/pelvis and xray LEFT hip noting Fracture of the left femoral neck with associated soft tissue swelling. Given length of time since fall/difficulty ambulating, did obtain Venous Doppler which was NEGATIVE for DVT and orthopedics consulted, Dr Barclay. Underwent L hip hemiarthroplasty with Dr. Barclay on 02/08/24. Did receive IVF post-operatively for low UOP which improved and stable BP/renal function and improvement in PO intake and had been discontinued following Hip precautions, therapy evals Vitamin D Deficiency --> Vitamin D level low at 9.2 on 02/08/24. --> Continue Vit D3 supplementation at 1250 mcg PO weekly (sent 1 month, would continue for 2 months then once daily lower dosing) and rec repeat level 3-4mo Provided ongoing pain control with Tylenol, oxycodone/morphine, lidocaine patch and decadron for her compression fracture which had been weaned. To continue oxycodone 5-10mg along with tylenol/patch and ice w/ steroid taper at discharge. Schulte dc 02/09, no issues with urinating since removal reported. Did strongly encourage continued bowel regimen at discharge. Did have +BS throughout and passing gas. She reports having BM q7-10 days at home as her "normal"however encouraged given decreased ambulatory status and ongoing pain control she should consider suppository in next 24-48hrs if not moving them. SHe declined prior to dc given hx hemorrhoids/prior surgeries, but again was encouraged if not moving w/ colace/miralax/senna ongoing at dc. DVT proph: Eliquis 2.5mg PO BID, 2-4wks, follow up with orthopedics outpt for staple removal. If ambulatory status much improved could consider shortening eliquis to 2 week course but was sent w/ 4 wk course. PT/OT consulted while inpatient w/ recs for rehab --> arrangements for [facility] at discharge for ongoing rehab. Ortho/PCP f/u at [facility] as recommended (2) Compression fracture of body of thoracic vertebra: MRI on admission as noted above Placed on decadron 4mg q8h IV on admission, decreased to 4mg BID 02/09 and to 2mg BID on 02/10 and to continue 1mg BID x 2 more days to complete taper. PT/OT --> Rehab to [facility] as above (3) UTI (urinary tract infection): UA on admission was positive for leukocyte Estrace and WBCs, per nursing was foul smelling. ?dehydration. IVF as above. Had been placed on Ceftriaxone IV however urine cx negative (mixed shyanne) and Ceftriaxone was discontinued 02/08 Schulte removed, no issues reported/suprapubic discomfort on exam but can repeat UA/cx at rehab if any issues. WBC remained wnl and was without fever Plan CHRONIC STABLE CONDITIONS Insomnia - chronic/stable -continued trazodone, mirtazapine GERD - chronic/stable, no issues reported. continued pantoprazole/home omeprazole at dc. Can increase to BID while on steroids but hasn't complained of any issues at this time/hgb stable and improved on repeat testing Depression/anxiety -chronic/stable, continued clonazepam COPD - continued home inhalers , on room air, no increased SOB/sputum reported. 94% prior to dc Discharged to [facility] for ongoing rehab. Continue eliquis for DVT proph, pain control/bowel regimen. Ortho f/u for staple removal. Decadron taper for compression fracture and can have ortho spine f/u as desired if any ongoing issues. Total Time Total Time Spent Total Time Spent (In Minutes): 50 Discharge Plan Discharge Items Patient Disposition: Transfer Inpatient Rehab Fac Reason For Visit: T12 COMPRESSION FRACTURE Discharge Diagnosis: Left femoral neck fracture; status post hemiarthroplasty Goals: You have been hospitalized for an urgent problem which required surgery. During your stay at [facility], we have made an effort to correct the problem that brought you to the hospital while keeping you as comfortable as possible. Surgery and medications were used to bring your condition under control and your discharge instructions will include directions for any medications you should take after leaving the hospital. Please make sure to follow the advice of your surgeon regarding follow up with the surgeon and with your primary care provider. Activity: Per Instructions section Weightbearing: Left weightbearing Weightbearing Comment: With the assistance of a walker Non-emergency contact: Surgeon Call non-emergency contact if: you have any medication questions, your symptoms worsen, your pain is not controlled, your temperature is above 101, your wound has increased redness and your wound has increased drainage Follow-up/Referrals: Petrona Castañeda MD [Primary Care Provider] - Sriram Tripathi PA-C [Physician Catering Service Manager] - 02/24/24 3:00 pm Diet: Regular Addtl Attending Provider Instructions: You have been hospitalized and found to have both a compression fracture in your back as well as broken hip. Orthopedics was consulted and you underwent repair of the hip and are being sent to rehab at discharge. You are to continue eliquis twice daily to prevent blood clots. Medications have been sent for ongoing pain control and you should continue bowel regimen to prevent constipation. You should follow up with Dr Barclay in 2 weeks from surgery for staple removal. We have also sent you on Vitamin D for low level and should follow up with primary care for ongoing replacement. We have also utilized some steroids for pain control in your back and are continuing another 2 days of 1mg twice daily to complete the taper. Please follow up with orthopedics and primary care at discharge. Return to the ER with any fever/chills, increased pain/redness/drainage from incision or for any other symptoms concerning for you. Take care! Addtl Yeast Pusher Provider Instructions: Weightbearing as tolerated with walker assistance PT/OT Daily Keep postoperative dressing in place, change as needed Abduction pillow use x 6 weeks DVT prophylaxis with Eliquis x 2 weeks To 4 weeks. Continue until discontinued by Dr. Barclay. Maximus stockings x 2 weeks. on during the day;off at night. Pain control with p.o. medication Ice with easy wrap Total hip precautions At all times. Keep abduction pillow or standard pillow between knees when sitting or laying in bed. Okay to shower and get the incision wet starting February. May wash with soap and water. Pat incision dry. Do not scrub or soak incision. Redressed with a light dressing. Reinforce or redress incision as needed. Follow-up open status with orthopedics 2 weeks after discharge for staple removal (Calin Tripahti PA-C 02/24/24 @ 3:00) With questions contact our clinic at [phone] Pending Studies at Discharge: No Stand-Alone Forms: My [facility] Skilled Items Patient informed of condition?: Yes DNR: No Discharge Level of Care: Acute rehab Communicable Disease: No Discharge Prognosis: Stable Lines: None Urinary Catheter: No Medications and DC Order Prescriptions: New Eliquis 2.5 mg Tablet 2.5 mg PO BID 28 Days Qty: 50 0RF acetaminophen [Tylenol Extra Strength] 500 mg Tablet 1,000 mg PO Q8H PRN (Reason: fever or pain) Qty: 20 0RF oxycodone 5 mg Tablet 5 - 10 mg PO Q4H PRN (Reason: pain) Qty: 14 0RF docusate sodium 100 mg Capsule 100 mg PO BID Qty: 30 0RF polyethylene glycol 3350 [Miralax] 17 gram Powder In Packet 17 g PO Q6 Qty: 14 0RF sennosides [Senokot] 8.6 mg Tablet 17.2 mg PO HS Qty: 30 0RF lidocaine 5 % Adhesive Patch,Medicated 1 patch transdermal QAM Qty: 7 0RF ergocalciferol (vitamin D2) 1,250 mcg (50,000 unit) Capsule 1,250 mcg PO Leal@1100 Qty: 4 0RF dexamethasone 1 mg tablet 1 mg PO BID Qty: 4 0RF Continued Neuriva Plus Brain Performance 1.7 mg-400 mcg- 2.4 mcg capsule 1 cap PO .[facility] Rx Instructions: 3 xs week on formerly [facility] PreserVision AREDS-2 250-90-40-1 mg capsule 1 tab PO DAILY biotin 10,000 mcg capsule 0 mcg PO DAILY Anoro Ellipta 62.5-25 mcg/actuation blister with device 1 inh INH Q24H Qty: 180 3RF clonazepam [Klonopin] 1 mg tablet 1 mg PO QID Qty: 120 5RF alendronate 70 mg tablet 70 mg PO .COMPLEX Qty: 12 1RF Rx Instructions: 70 mg orally once weekly; albuterol sulfate [Ventolin HFA] 90 mcg/actuation HFA aerosol inhaler 2 puff INH Q4H PRN (Reason: shortness of breath or wheezing) Qty: 18 5RF omeprazole 20 mg capsule,delayed release(DR/EC) 20 mg PO DAILY Qty: 90 3RF trazodone 100 mg tablet 200 mg PO HS Qty: 180 3RF mirtazapine 45 mg tablet 45 mg PO QPM Qty: 90 3RF triamcinolone acetonide 0.1 % ointment 1 applic topical BID Qty: 30 0RF efinaconazole 10 % solution with applicator 1 applic topical DAILY 336 Days Qty: 4 1RF mecobalamin (vitamin B12) 1,000 mcg tablet,chewable 1,000 mcg PO .SA Rx Instructions: Takes on days that she works gabapentin 100 mg capsule 200 mg PO HS Qty: 180 3RF calcitonin (salmon) 200 unit/actuation spray,non-aerosol 1 spray intranasal (ALT) DAILY 30 Days Qty: 3.7 2RF multivitamin Tablet 1 tab PO QAM Discontinued oxycodone-acetaminophen 5-325 mg tablet 1 tab PO Q6H PRN (Reason: pain) 7 Days Qty: 28 0RF Discharge Orders: Discharge Order (Routine); Ordered 02/11/24 Ordered By: Elza Gerber Admission Data Admit Date/Time: 02/07/24 00:16 Attending Provider: Arjun Adame Admit Provider: Ciarra Bowden Primary Care Provider: Petrona Castañeda Other Providers: Wander Carver; Prashanth Morton; Cosmo Barclay; [facility]; Mario Cobian [facility] Other Interventions: Discharge Summary Assessment (RN) Last Done: 02/11/24 11:09 Supervising Physician Co-Signing Physician Notes The patient was not seen by me. The chart was reviewed. Case discussed with TALIA Heredia. Agree with assessment and plan Coding Level of Care Code 43512 INP/OBS DISCH >30 MIN Diagnoses Fracture of femoral neck, left S72.002A Compression fracture of body of thoracic vertebra S22.000A UTI (urinary tract infection) N39.0
[2024-02-11] MEDS: dexAMETHasone 2 MG in SYRINGE 0 ML IV SCH (09:20)
--- NOTE | 2024-02-11 11:04 | Orthopedic Progress Note ---
Date of Service February 11, 2024 Assessment & Plan (1) S/P hip hemiarthroplasty: Plan: Postop day 3-status post hemiarthroplasty left hip Total hip precautions reviewed PT/OT Weightbearing as tolerated with walker assistance Abduction pillow use x 6 weeks Ice with easy wrap Pain control with p.o. medication DVT prophylaxisWith Eliquis 2.5 mg p.o. twice daily for 2 to 4 weeks postoperatively. Case management evaluation for discharge planning. Potentially being [facility]. Dr. Barclay present for today's visit. Reinforce dressing on left hip as needed. Redress as needed. stable from orthopedic standpoint for discharge to [facility] when medically stable. Follow-up in approximately 2 weeks as scheduled with [facility] orthopedics. Admission and Anticipated Discharge Date Admission Date: February 07, 2024 Subjective Patient continues to say that she has a lot of pain in her left hip. She is concerned about not getting pain medicine prior to her discharge to [facility]. She is lying in bed but does not have the abduction pillow in place. Physical Exam Musculoskeletal: Exam of her left hip: Her dressings are clean, dry and intact.No distal edema. Slight effusion to the left knee but and able to flex her knee actively about 10 degrees. Unable to independently straight leg raise. No distal edema. Ankle has full range of motion and normal strength. Distal pulses are 1+. Sensation is normal throughout the left leg. Results & Data Vital Signs (Past 12 Hours) Vital Signs Temp Pulse Resp BP Pulse Ox O2 Del Method 02/11/24 06:32 36.7 C 50 L 16 147/79 H 94 Room Air 02/10/24 23:50 Room Air Laboratory Results 02/11/24 Range/Units 05:56 WBC 4.80 (4.8-10.8) K/ul RBC 3.68 L (4.20-5.40) M/uL Hgb 11.6 L (12.0-16.0) g/dl Hct 35.3 L (37.0-47.0) % MCV 95.9 (80.0-100.0) fL MCH 31.5 (25.0-34.0) pg MCHC 32.9 (32.0-36.0) g/dL RDW Std Deviation 43.2 (36.4-46.3) fL RDW Coeff of Josie 12.5 (11.5-14.5) % Plt Count 131 (130-400) K/uL MPV 10.7 (9.4-12.4) fL Sodium 137 (136-145) mmol/L Potassium 4.7 (3.5-5.1) mmol/L Chloride 103 (98-107) mmol/L Carbon Dioxide 32 (21-32) mmol/L Anion Gap 2 L (3-11) BUN 19 (6-23) mg/dl Creatinine 0.46 L (0.6-1.2) mg/dl Est Cr Clr Drug Dosing 94.8 ml/min Est GFR ( Amer) 116.8 ml/min Est GFR (Non-Af Amer) 100.8 ml/min BUN/Creatinine Ratio 41.3 H (10-20) Glucose 102 H (70-99(Fasting)) mg/dl Calcium 8.3 L (8.6-10.3) mg/dl Magnesium 2.1 (1.7-2.4) mg/dl
== END 2024-02-11 14:04 | DRG 522 ==
LOC: ED 16:15 → SUATTDRO 02-07 00:16 → 3N 02-07 00:16